=== PATIENT | female | born 1945 | race Hispanic/Latino ===

== ENCOUNTER 2017-11-05 02:13 | Inpatient (IN) | payer MEDICARE ==
[2017-11-05 02:14] VITALS: BMI 33.7
--- NOTE | 2017-11-05 02:35 | C.PDOC ---
History Of Present Illness The patient presents to the ED as a transfer from [facility]. Patient was evaluated at [facility] for bleeding from her left AV shunt. Patient had stitches placed to the area. She was sent to the ED because she apparently needs a revision for her shunt. Patient states she was due for dialysis yesterday. She denies chest pain and palpitations. Time Seen by Provider: 11/05/17 02:35 History Per: Patient History/Exam Limitations: no limitations Onset/Duration Of Symptoms: Hrs Current Symptoms Are (Timing): Still Present Severity: None Pain Scale Rating Of: 0 Recent travel outside of the [place]: No Additional History Per: Patient Past Medical History Reviewed: Historical Data, Nursing Documentation, Vital Signs Vital Signs: Last Vital Signs Temp 97.2 F L 11/05/17 02:37 Pulse 74 11/05/17 02:37 Resp 16 11/05/17 02:37 BP 112/73 11/05/17 02:37 Pulse Ox 97 11/05/17 03:36 - Medical History PMH: Anemia, Arthritis, Atrial Fibrillation, CAD, CHF, Diabetes, HTN, Hypercholesterolemia, Chronic Kidney Disease Surgical History: Coronary Stent, (1) - [facility] Procedures INTRODUCTION OF SERUM/TOX/VACCINE INTO MUSCLE, PERC APPROACH (07/12/15) Family History: States: Unknown Family Hx - Social History Hx Alcohol Use: No Hx Substance Use: No Review Of Systems Constitutional: Negative for: Fever, Chills Cardiovascular: Negative for: Chest Pain, Palpitations Respiratory: Negative for: Cough, Shortness of Breath Gastrointestinal: Negative for: Nausea, Vomiting Skin: Negative for: Rash, Lesions, Jaundice, Bruising Neurological: Negative for: Weakness, Numbness Physical Exam - Physical Exam Appears: Non-toxic, No Acute Distress Skin: Warm, Dry Head: Normacephalic Eye(s): bilateral: Normal Inspection Oral Mucosa: Moist Neck: Supple Chest: Symmetrical, No Deformity, No Tenderness Cardiovascular: Rhythm Regular, No Murmur Respiratory: No Rales, No Rhonchi, No Wheezing Extremity: Normal ROM, Capillary Refill (less than 2 seconds ), Other (left AV graft wrapped ) Neurological/Psych: Oriented x3 ED Course And Treatment O2 Sat by Pulse Oximetry: 97 (on RA) Pulse Ox Interpretation: Normal Disposition Discussed With : Keith Casanova Comment: accepted the pt onhis service and took over the care at 4:AM Doctor Will See Patient In The: Hospital Counseled Patient/Family Regarding: Studies Performed, Diagnosis - Disposition Disposition: HOSPITALIZED Disposition Time: 02:35 Condition: FAIR - Clinical Impression Clinical Impression: ESRD needing dialysis, Bleeding from dialysis shunt - Scribe Statement The provider has reviewed the documentation as recorded by the Scribe (Vonnie Casanova) Provider Attestation: All medical record entries made by the Scribe were at my direction and personally dictated by me. I have reviewed the chart and agree that the record accurately reflects my personal performance of the history, physical exam, medical decision making, and the department course for this patient. I have also personally directed, reviewed, and agree with the discharge instructions and disposition. Decision To Admit - Pt Status Changed To: Hospital Disposition Of: Inpatient - Admit Certification Admit to Inpatient:: After my assessment, the patient will require hospitalization for at least two midnights. This is because of the severity of symptoms shown, intensity of services needed, and/or the medical risk in this patient being treated as an outpatient. - InPatient: Physician Admission Certification: I certify that this patient requires 2 or more midnights of care for the following reason:: After my assessment, the patient will require hospitalization for at least two midnights. This is because of the severity of symptoms shown, intensity of services needed, and/or the medical risk in this patient being treated as an outpatient. - . Bed Request Type: Regular Admitting Physician: Keith Casanova Patient Diagnosis: ESRD needing dialysis, Bleeding from dialysis shunt
[2017-11-05] MEDS: [UNRECOGNIZED DRUG - OTHER] IV ONE ×3 (03:32→05:17)
[2017-11-05] MEDS: DEXTROSE IV ONE ×3 (03:32→05:17)
[2017-11-05] MEDS ORDERED: Dextrose 50% SYRINGE Inj (50 ml) IV STA (04:15)
[2017-11-05] MEDS ORDERED: DEXTROSE IV ONE (04:30)
[2017-11-05] MEDS ORDERED: [UNRECOGNIZED DRUG - OTHER] IV ONE (04:30)
--- NOTE | 2017-11-05 05:24 | CP.PCM.CON ---
History of Present Illness - History of Present Illness History of Present Illness: Vascular Surgery Consult Note for Dr. Martinez This is a 72F with a PMH of ESRD, HTN, Afib, and Aortic Stenosis and renal CA for which she finished chemo in april. She recently has had problems with her dialysis and on thursday she had a thrombctomy of her AVF she was told that they stitches shouwld be removed thursday at dialysis, when they removed the stitched she strated bleeding. She went to the [facility] where the surgical corsetier placed two nylon sutures to control the bleeding and the patient was transferred to [facility]. PMH: ESRD, HTN, Renal CA, PSH: Nephrectomy ALL: NKDA Review of Systems - Review of Systems All systems: reviewed and no additional remarkable complaints except Past Patient History - Past Medical History & Family History Past Medical History?: Yes - Past Social History Smoking Status: Never Smoked - CARDIAC Hx Atrial Fibrillation: Yes Hx Congestive Heart Failure: Yes Hx Hypercholesterolemia: Yes Hx Hypertension: Yes - PULMONARY Hx Respiratory Disorders: No - NEUROLOGICAL Hx Neurological Disorder: No - HEENT Hx HEENT Problems: No - RENAL Hx Chronic Kidney Disease: Yes - ENDOCRINE/METABOLIC Hx Endocrine Disorders: Yes Hx Diabetes Mellitus Type 2: Yes - HEMATOLOGICAL/ONCOLOGICAL Hx Anemia: Yes - INTEGUMENTARY Hx Dermatological Problems: No - MUSCULOSKELETAL/RHEUMATOLOGICAL Hx Arthritis: Yes - GASTROINTESTINAL Hx Gastrointestinal Disorders: No - GENITOURINARY/GYNECOLOGICAL Hx Genitourinary Disorders: Yes 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) - PSYCHIATRIC Hx Substance Use: No - SURGICAL HISTORY Hx Coronary Stent: Yes - ANESTHESIA Hx Anesthesia: Yes Hx Anesthesia Reactions: No Hx Malignant Hyperthermia: No Meds Allergies/Adverse Reactions: Allergies Allergy/AdvReac Type Severity Reaction Status Date / Time No Known Allergies Allergy Verified 11/05/17 02:46 Physical Exam - Constitutional Appears: Non-toxic, No Acute Distress - Head Exam Head Exam: ATRAUMATIC, NORMOCEPHALIC - Eye Exam Eye Exam: EOMI - ENT Exam ENT Exam: Mucous Membranes Moist - Respiratory Exam Respiratory Exam: NORMAL BREATHING PATTERN - Cardiovascular Exam Cardiovascular Exam: +S1, +S2 - GI/Abdominal Exam GI & Abdominal Exam: Soft. absent: Distended, Firm, Guarding, Hernia, Rigid, Tenderness - Extremities Exam Additional comments: LUE bandaged, Peripheral pulses intact distal had warm without sensory or motor changes - Neurological Exam Neurological exam: Alert, Oriented x3 - Psychiatric Exam Psychiatric exam: Normal Affect, Normal Mood - Skin Skin Exam: Dry, Intact Results - Vital Signs Recent Vital Signs: Last Vital Signs Temp 97.2 F L 11/05/17 02:37 Pulse 64 11/05/17 05:06 Resp 16 11/05/17 05:06 BP 86/36 L 11/05/17 05:06 Pulse Ox 97 11/05/17 05:06 - Labs Labs: Laboratory Results - last 24 hr 11/05/17 11/05/17 11/05/17 04:03 04:29 05:03 POC Glucose (mg/dL) 38 L* 151 H 170 H Assessment & Plan - Assessment and Plan (Free Text) Assessment: 72F with bleeding AVF NPO Likely OR today with Dr. Martinez for establishment of dialysis access D/W Dr. Michelle Perez PGY2
--- NOTE | 2017-11-05 09:27 | CP.PCM.PN ---
Subjective - Date & Time of Evaluation Date of Evaluation: 11/05/17 Time of Evaluation: 09:27 - Subjective Subjective: left arm fistula patent may be used for HD remove sutures where they were placed after a week Objective - Vital Signs/Intake and Output Vital Signs (last 24 hours): Temp Pulse Resp BP Pulse Ox 95.5 F L 60 16 101/49 L 99 11/05/17 05:50 11/05/17 06:41 11/05/17 06:41 11/05/17 06:41 11/05/17 06:41 Intake and Output: 11/05/17 11/05/17 06:59 18:59 Intake Total 30 Output Total 0 Balance 30
--- NOTE | 2017-11-05 14:01 | CP.PCM.CON ---
History of Present Illness - History of Present Illness History of Present Illness: Initial Nephrology Consultation: Assessment: Stable AVF bleeding/dysfunction Hypertensive Chronic Kidney Disease (I12.0) End stage renal disease (N18.6) dependence on hemodialysis (Z99.2) (MWF) via AVF Anemia (D64.9), Hyperphosphatemia (E83.39), Secondary Hyperparathyroidism (E21.1 ), HTN (I12.0) Obesity, RCC, hx of nephrectomy Plan: Will plan for HD today as ordered. Continue with Nephrovite 1 tab/day. next HD tomorrow as per MWF PRBC as needed for anemia. not On GRAEME as last Hb 11.7 Continue with phos binders home dose, check phos level BP control with meds as ordered. Glycemic control, Dialysis consistent diet Further work up/management as per primary team Dose meds/antibiotics (if needed) for ESRD status. Avoid fleets enema/magnesium based laxatives. appreciate vascular surgery input if able to use AVF without difficulty, pt may be considered for d/c home today after HD Thanks for allowing me to participate in care of your patient. will follow with you. Please call if any Qs Dr Say Salvador Office: [phone] Chief Complaint;access bleeding HPI: Pt is a 72 Fwith hx of ESRD on hemodialysis (MWF) via AVF (Dr Wing) @ [facility], last dialysis Mon, chronic anemia, hyperphosphatemia, secondary hyperparathyroidism, hypertension, obesity, RCC s/p nephrectomy presented with complaints of access bleeding after suture removal to [facility]. she has AVF intervention done at access center recently. transferred to [facility] for further care. renal consult for ESRD management ROS: Cardiovascular: No chest pain. Pulmonary: denies shortness of breath Gastrointestinal: denies abdominal pain no nausea. No vomiting. Genitourinary: No pain while urinating. Denies blood in urine. All other negative Physical Examination: General Appearance: in no acute respiratory distress, co-operative . comfortable Vitals reviewed and noted as below Head; Atraumatic, normocephalic ENT: no ulcers no thrush. Tongue is midline. Oropharynx: no rash or ulcers. EYES: Pupils are equal, round and reactive to light accommodation. Eye muscles and extraocular movement intact. Sclera is anicteric. Neck; supple no lymphadenopathy, no thyromegaly or bruit Lungs: Normal respiratory rate/effort. Breath sounds bilateral equal and clear Heart: Normal rate. s1s2 normal. No rub or gallop. Extremities: no edema. No varicose veins Neurological: Patient is alert, awake and oriented to person, place and time. No focal deficit. Strength bilateral appropriate and equal Skin: Warm and dry. Normal turgor. No rash. Palpitation: Normal elasticity for age Abdomen: Abdomen is soft. Bowel sounds +. There is no abdominal tenderness, no guarding/rigidity or organomegaly Psych: normal insight and normal affect/mood MSK: no joint tenderness or swelling. Digits and nails normal, no deformity : kidney or bladder not palpable Access: AVF lUE with thrill abd bruit. Labs/imaging reviewed. Past medical history, past surgical history, family history, social history, allergy reviewed and noted as below Family Hx: no hx of CKD. Non contributory Past Patient History - Past Medical History & Family History Past Medical History?: Yes - Past Social History Smoking Status: Never Smoked - CARDIAC Hx Atrial Fibrillation: Yes Hx Congestive Heart Failure: Yes Hx Hypercholesterolemia: Yes Hx Hypertension: Yes - PULMONARY Hx Respiratory Disorders: No - NEUROLOGICAL Hx Neurological Disorder: No - HEENT Hx HEENT Problems: No - RENAL Date of Last Dialysis Treatment: 11/02/17 - ENDOCRINE/METABOLIC Hx Endocrine Disorders: Yes Hx Diabetes Mellitus Type 2: Yes - HEMATOLOGICAL/ONCOLOGICAL Hx Anemia: Yes - INTEGUMENTARY Hx Dermatological Problems: No - MUSCULOSKELETAL/RHEUMATOLOGICAL Hx Falls: No - GASTROINTESTINAL Hx Gastrointestinal Disorders: No - GENITOURINARY/GYNECOLOGICAL Hx Genitourinary Disorders: Yes 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) - PSYCHIATRIC Hx Substance Use: No - SURGICAL HISTORY Hx Coronary Stent: Yes - ANESTHESIA Hx Anesthesia: Yes Hx Anesthesia Reactions: No Hx Malignant Hyperthermia: No Meds Allergies/Adverse Reactions: Allergies Allergy/AdvReac Type Severity Reaction Status Date / Time No Known Allergies Allergy Verified 11/05/17 02:46 Results - Vital Signs Recent Vital Signs: Last Vital Signs Temp 97.5 F L 11/05/17 10:17 Pulse 68 11/05/17 08:57 Resp 16 11/05/17 06:41 BP 101/49 L 11/05/17 06:41 Pulse Ox 99 11/05/17 06:41 - Labs Labs: Laboratory Results - last 24 hr 11/05/17 11/05/17 11/05/17 04:03 04:29 05:03 POC Glucose (mg/dL) 38 L* 151 H 170 H 11/05/17 11/05/17 11/05/17 05:38 10:19 11:23 POC Glucose (mg/dL) 154 H 95 81
--- NOTE | 2017-11-05 16:04 | CP.PCM.HP ---
Past Patient History - Past Medical History & Family History Past Medical History?: Yes - Past Social History Smoking Status: Never Smoked - CARDIAC Hx Atrial Fibrillation: Yes Hx Congestive Heart Failure: Yes Hx Hypercholesterolemia: Yes Hx Hypertension: Yes - PULMONARY Hx Respiratory Disorders: No - NEUROLOGICAL Hx Neurological Disorder: No - HEENT Hx HEENT Problems: No - RENAL Date of Last Dialysis Treatment: 11/02/17 - ENDOCRINE/METABOLIC Hx Endocrine Disorders: Yes Hx Diabetes Mellitus Type 2: Yes - HEMATOLOGICAL/ONCOLOGICAL Hx Anemia: Yes - INTEGUMENTARY Hx Dermatological Problems: No - MUSCULOSKELETAL/RHEUMATOLOGICAL Hx Falls: No - GASTROINTESTINAL Hx Gastrointestinal Disorders: No - GENITOURINARY/GYNECOLOGICAL Hx Genitourinary Disorders: Yes 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) - PSYCHIATRIC Hx Substance Use: No - SURGICAL HISTORY Hx Coronary Stent: Yes - ANESTHESIA Hx Anesthesia: Yes Hx Anesthesia Reactions: No Hx Malignant Hyperthermia: No Meds Allergies/Adverse Reactions: Allergies Allergy/AdvReac Type Severity Reaction Status Date / Time No Known Allergies Allergy Verified 11/05/17 02:46 Physical Exam - Constitutional Appears: Well - Head Exam Head Exam: ATRAUMATIC, NORMAL INSPECTION, NORMOCEPHALIC - Eye Exam Eye Exam: EOMI, Normal appearance, PERRL Pupil Exam: NORMAL ACCOMODATION, PERRL - ENT Exam ENT Exam: Mucous Membranes Moist, Normal Exam - Neck Exam Neck exam: Positive for: Normal Inspection - Respiratory Exam Respiratory Exam: Decreased Breath Sounds - Cardiovascular Exam Cardiovascular Exam: REGULAR RHYTHM, +S1, +S2 - GI/Abdominal Exam GI & Abdominal Exam: Diminished Bowel Sounds, Soft - Rectal Exam Rectal Exam: Deferred Results - Vital Signs Recent Vital Signs: Last Vital Signs Temp 97.5 F L 11/05/17 10:17 Pulse 68 11/05/17 08:57 Resp 16 11/05/17 06:41 BP 101/49 L 11/05/17 06:41 Pulse Ox 99 11/05/17 06:41 - Labs Labs: Laboratory Results - last 24 hr 11/05/17 11/05/17 11/05/17 04:03 04:29 05:03 POC Glucose (mg/dL) 38 L* 151 H 170 H 11/05/17 11/05/17 11/05/17 05:38 10:19 11:23 POC Glucose (mg/dL) 154 H 95 81
[2017-11-05 16:07] VITALS: O2SAT 100
[2017-11-05 18:27] VITALS: RESP 14
[2017-11-05 18:28] VITALS: BP 124/54; PULSE 85
[2017-11-06] MEDS ORDERED: Multivitamin Vitamin B Complex (Nephro-Vite) Tab PO SCH (10:00)
--- NOTE | 2017-11-06 11:29 | CP.PCM.PN ---
Subjective - Date & Time of Evaluation Date of Evaluation: 11/06/17 Time of Evaluation: 11:28 - Subjective Subjective: PATIENT WAS ADMITTED FOR BLEEDING SHUNT SITTING AT THE BEDSIDE ON ROOM AIR / AAOX3 NO SIGN OF DISTRESS NOTED Objective - Vital Signs/Intake and Output Vital Signs (last 24 hours): Temp Pulse Resp BP Pulse Ox 98 F 85 14 124/54 L 100 11/05/17 15:00 11/05/17 18:00 11/05/17 18:00 11/05/17 18:00 11/05/17 18:00 Intake and Output: 11/06/17 11/06/17 06:59 18:59 Intake Total 240 Output Total 0 Balance 240 - Medications Medications: Current Medications Amiodarone HCl (Cordarone) 200 mg PO DAILY [facility] Last Admin: 11/06/17 10:24 Dose: 200 mg Apixaban (Eliquis) 2.5 mg PO Q12 [facility] Last Admin: 11/06/17 10:24 Dose: 2.5 mg Metoprolol Succinate (Toprol Xl) 25 mg PO SuTuThSa [facility] Sevelamer Carbonate (Renvela) 800 mg PO TIDCC [facility] Last Admin: 11/06/17 10:26 Dose: 800 mg Vitamin B Complex/Vit C/Folic Acid (Nephro-Delisa) 1 tab PO DAILY [facility] Assessment and Plan - Assessment and Plan (Free Text) Assessment: PATIENT SEEN AND EXAMINED AT THE BEDSIDE LUNG SOUND CLEAR ABD SOFT DISTENDED LEG EDEMA +1 LEFT ARM AVS BRUIT / NO SIGN OF BLEEDING NOTED DISCUSS WITH DR Froylan BALDWIN WHO CLEAR PATIENT FOR DC FOLLOW UP WITH DR Froylan BALDWIN IN HIS OFFICE IN 1-2 WEEK ---CALL FOR APPOINTMENT FOLLOW UP WITH DR BISHOP IN HIS OFFICE IN 1 WEEK ---CALL FOR APPOINTMENT CONTINUE ALL YOUR HOME MEDICATION HEMODIALYSIS SCHEDULE ACTIVITY TOLERATED CALL DR BALDWIN OR GO TO THE EMERGENCY ROOM IF SYMPTOMS RETURN OR WORSENING DISCUSS WITH PATIENT WHO AGREE AND VERBALIZED UNDERSTANDING
[2017-11-06 12:22] VITALS: TEMP 98.7
--- NOTE | 2017-11-06 12:55 | CARD ---
APPROVED REPORT EKG Measurement Heart [id number] <Conclusion> Atrial fibrillation Left axis deviation Right bundle branch block Abnormal ECG
--- NOTE | 2017-11-06 15:39 | CP.PCM.PN ---
Subjective - Date & Time of Evaluation Date of Evaluation: 11/06/17 Time of Evaluation: 15:38 - Subjective Subjective: Nephrology Consultation: Assessment: Stable AVF bleeding/dysfunction Hypertensive Chronic Kidney Disease (I12.0) End stage renal disease (N18.6) dependence on hemodialysis (Z99.2) (MWF) via AVF Anemia (D64.9), Hyperphosphatemia (E83.39), Secondary Hyperparathyroidism (E21.1 ), HTN (I12.0) Obesity, RCC, hx of nephrectomy Plan: Will plan for HD today as ordered however pt being d/c home today and pt arranged to go to oupt HD tomorrow. Continue with Nephrovite 1 tab/day. PRBC as needed for anemia. not On GRAEME as last Hb 11.7 Continue with phos binders home dose, check phos level BP control with meds as ordered. Glycemic control, Dialysis consistent diet Further work up/management as per primary team Dose meds/antibiotics (if needed) for ESRD status. Avoid fleets enema/magnesium based laxatives. appreciate vascular surgery input as able to use AVF without difficulty, pt stable for d/c from renal perspective Thanks for allowing me to participate in care of your patient. will follow with you. Please call if any Qs Dr Say Salvador Office: [phone] Chief Complaint;access bleeding HPI: Pt is a 72 Fwith hx of ESRD on hemodialysis (MWF) via AVF (Dr Wing) @ [facility], last dialysis Mon, chronic anemia, hyperphosphatemia, secondary hyperparathyroidism, hypertension, obesity, RCC s/p nephrectomy presented with complaints of access bleeding after suture removal to [facility]. she has AVF intervention done at access center recently. transferred to [facility] for further care. renal consult for ESRD management ROS: Cardiovascular: No chest pain. Pulmonary: denies shortness of breath Gastrointestinal: denies abdominal pain no nausea. No vomiting. Genitourinary: No pain while urinating. Denies blood in urine. All other negative Physical Examination: General Appearance: in no acute respiratory distress, co-operative . comfortable Vitals reviewed and noted as below Head; Atraumatic, normocephalic ENT: no ulcers no thrush. Tongue is midline. Oropharynx: no rash or ulcers. EYES: Pupils are equal, round and reactive to light accommodation. Eye muscles and extraocular movement intact. Sclera is anicteric. Neck; supple no lymphadenopathy, no thyromegaly or bruit Lungs: Normal respiratory rate/effort. Breath sounds bilateral equal and clear Heart: Normal rate. s1s2 normal. No rub or gallop. Extremities: no edema. No varicose veins Neurological: Patient is alert, awake and oriented to person, place and time. No focal deficit. Strength bilateral appropriate and equal Skin: Warm and dry. Normal turgor. No rash. Palpitation: Normal elasticity for age Abdomen: Abdomen is soft. Bowel sounds +. There is no abdominal tenderness, no guarding/rigidity or organomegaly Psych: normal insight and normal affect/mood MSK: no joint tenderness or swelling. Digits and nails normal, no deformity : kidney or bladder not palpable Access: AVF lUE with thrill abd bruit. Labs/imaging reviewed. Past medical history, past surgical history, family history, social history, allergy reviewed and noted as below Family Hx: no hx of CKD. Non contributory Objective - Vital Signs/Intake and Output Vital Signs (last 24 hours): Temp Pulse Resp BP Pulse Ox 98.7 F 85 14 124/54 L 100 11/06/17 10:17 11/05/17 18:00 11/05/17 18:00 11/05/17 18:00 11/06/17 10:17 Intake and Output: 11/06/17 11/06/17 06:59 18:59 Intake Total 240 Output Total 0 Balance 240 - Medications Medications: Current Medications Amiodarone HCl (Cordarone) 200 mg PO DAILY [facility] Last Admin: 11/06/17 10:24 Dose: 200 mg Apixaban (Eliquis) 2.5 mg PO Q12 [facility] Last Admin: 11/06/17 10:24 Dose: 2.5 mg Metoprolol Succinate (Toprol Xl) 25 mg PO SuTuThSa [facility] Sevelamer Carbonate (Renvela) 800 mg PO TIDCC [facility] Last Admin: 11/06/17 10:26 Dose: 800 mg Vitamin B Complex/Vit C/Folic Acid (Nephro-Delisa) 1 tab PO DAILY [facility]
[2017-11-07] MEDS ORDERED: Metoprolol Succinate 25 mg XL Tab PO SCH (09:35)
== END 2017-11-06 15:30 | disposition home or self-care (01) | DRG 314 ==
LOC: C.ER 02:13 → C.3T 03:00 → C.9E 06:13 → C.9I 06:22
PROVIDERS: ADMIT Internal Medicine Nephrology; ATTEND Internal Medicine Nephrology
PROC: 5A1D70Z Performance of Urinary Filtration, Intermittent, Less than 6 Hours Per Day (ICD-10-PCS; principal; 2017-11-05)
DX: T82.838A Hemorrhage due to vascular prosthetic devices, implants and grafts, initial encounter (principal); N18.6 End stage renal disease; N25.81 Secondary hyperparathyroidism of renal origin; I13.2 Hypertensive heart and chronic kidney disease with heart failure and with stage 5 chronic kidney disease, or end stage renal disease; I48.91 Unspecified atrial fibrillation; I35.0 Nonrheumatic aortic (valve) stenosis; E11.22 Type 2 diabetes mellitus with diabetic chronic kidney disease; E83.39 Other disorders of phosphorus metabolism; I25.10 Atherosclerotic heart disease of native coronary artery without angina pectoris; E21.1 Secondary hyperparathyroidism, not elsewhere classified; D64.9 Anemia, unspecified; E78.00 Pure hypercholesterolemia, unspecified; E66.9 Obesity, unspecified; Z95.5 Presence of coronary angioplasty implant and graft; Z99.2 Dependence on renal dialysis; Z90.5 Acquired absence of kidney; Z85.528 Personal history of other malignant neoplasm of kidney; Z85.54 Personal history of malignant neoplasm of ureter; Z92.21 Personal history of antineoplastic chemotherapy; M19.90 Unspecified osteoarthritis, unspecified site

== ENCOUNTER 2018-06-28 18:37 | Inpatient (IN) | payer MEDICARE ==
[2018-06-28 19:08] VITALS: BMI 34.0
--- NOTE | 2018-06-28 19:53 | C.PDOC ---
History Of Present Illness 72 year old female with a history of ESRD currently on dialysis presents to the emergency department with complaints of left AV fistula with clog. Patient states that she missed her dialysis today, with her last dialysis being on Thu06/25/18. Patient has a secondary complaint of coccyx pain status-post falling over [place]. Patient has a history of frequent falls. She denies head injury and LOC. Time Seen by Provider: 06/28/18 19:50 Chief Complaint (Nursing): Medical Clearance History Per: Patient History/Exam Limitations: no limitations Onset/Duration Of Symptoms: Hrs Current Symptoms Are (Timing): Still Present Past Medical History Reviewed: Historical Data, Nursing Documentation, Vital Signs Vital Signs: Last Vital Signs Temp 97.2 F L 06/28/18 19:05 Pulse 79 06/28/18 19:05 Resp 18 06/28/18 19:05 BP 115/74 06/28/18 19:05 Pulse Ox 99 06/28/18 19:05 - Medical History PMH: Anemia, Arthritis, Atrial Fibrillation, CAD, CHF, Diabetes, HTN, Hypercholesterolemia, Parkinson's Disease, End Stage Renal Disease, Chronic Kidney Disease Surgical History: Coronary Stent, (1) - [facility] Procedures (11/05/17) INTRODUCTION OF SERUM/TOX/VACCINE INTO MUSCLE, PERC APPROACH (07/12/15) Family History: States: No Known Family Hx - Social History Hx Alcohol Use: No Hx Substance Use: No - Immunization History Hx Tetanus Toxoid Vaccination: No Hx Influenza Vaccination: Yes Hx Pneumococcal Vaccination: Yes Review Of Systems Except As Marked, All Systems Reviewed And Found Negative. Constitutional: Negative for: Fever, Chills Gastrointestinal: Negative for: Nausea, Vomiting, Diarrhea Skin: Positive for: Other (left AV fistula) Physical Exam - Physical Exam Appears: Non-toxic, No Acute Distress Skin: Warm, Dry, Ecchymosis (present to the right elbow) Head: Atraumatic, Normacephalic Eye(s): bilateral: Normal Inspection, PERRL, EOMI Neck: Normal, Supple Chest: Symmetrical, No Tenderness Cardiovascular: Rhythm Regular, No Murmur Respiratory: Normal Breath Sounds, No Rales, No Rhonchi, No Wheezing Gastrointestinal/Abdominal: Soft, No Tenderness Extremity: Tenderness (coccyx tenderness), Other (right elbow NON-tender) Neurological/Psych: Oriented x3, Normal Speech, Normal Cognition ED Course And Treatment - Laboratory Results Result Diagrams: 06/30/18 05:20 06/30/18 05:20 O2 Sat by Pulse Oximetry: 99 (RA) Pulse Ox Interpretation: Normal Medical Decision Making Medical Decision Making: Plan: EKG Chemistry Bloodwork CXR XR Sacrum noted ekg changes, and k. calcium insulin dextrose dosed. call placed to dr ortega witt. will arrange hd after shiley placed by icu. accepted by dr roberts. Dr. Ortega witt states shiley to be placed, then control inspector nurse can be called Disposition - Disposition Disposition: HOSPITALIZED Disposition Time: 00:01 Condition: CRITICAL - Clinical Impression Clinical Impression: ESRD (end stage renal disease), Hyperkalemia, Fractured coccyx - Scribe Statement The provider has reviewed the documentation as recorded by the Scribe (Riley Coffey) Provider Attestation: All medical record entries made by the Scribe were at my direction and perso liberty dictated by me. I have reviewed the chart and agree that the record accurately reflects my personal performance of the history, physical exam, medical decision making, and the department course for this patient. I have also personally directed, reviewed, and agree with the discharge instructions and disposition. Decision To Admit - Pt Status Changed To: Hospital Disposition Of: Inpatient - Admit Certification Admit to Inpatient:: After my assessment, the patient will require hospitalization for at least two midnights. This is because of the severity of symptoms shown, intensity of services needed, and/or the medical risk in this patient being treated as an outpatient. - InPatient: Physician Admission Certification: I certify that this patient requires 2 or more midnights of care for the following reason:: needs emergent hd - . Bed Request Type: ICU Admitting Physician: Reyes Roberts Patient Diagnosis: ESRD (end stage renal disease), Hyperkalemia, Fractured coccyx
[2018-06-28 21:27] LABS: BASO % 0.5 % (0.0-2.0); EOS % 0.1 % (0.0-4.0); HEMOGLOBIN 12.2 g/dL (11.0-16.0); LYMPH # 0.6 K/uL (1.0-4.3); MEAN CELL VOLUME 97.1 fL (81.0-99.0); MEAN CORPUSCULAR HEMOGLOBIN 31.9 pg (27.0-31.0); MEAN CORPUSCULAR HGB CONC 32.9 g/dL (33.0-37.0); MEAN PLATELET VOLUME 8.3 fL (7.2-11.7); MONO # 0.3 K/uL (0.0-0.8); NEUT # 5.4 K/uL (1.8-7.0); NEUT % 86.4 % (50.0-75.0); PLATELET COUNT 147 K/uL (130-400); RBC 3.84 Mil/uL (3.80-5.20); RED CELL DISTRIBUTION WIDTH 14.6 % (11.5-14.5); WHITE BLOOD COUNT 6.2 K/uL (4.8-10.8)
[2018-06-28 21:52] LABS: LYMPHOCYTE 9 % (20-40); MONOCYTE 5 % (0-10); NEUTROPHIL 86 % (50-75); PLATELET ESTIMATE NORMAL (NORMAL); TOTAL CELLS COUNTED 100
--- NOTE | 2018-06-28 22:09 | CP.PCM.CON ---
History of Present Illness - History of Present Illness History of Present Illness: Vascular Surgery: Dr. Martinez Pt is a 72F with PMHx significant for ESRD on HD (MWF),HTN,Afib,aortic stenosis,DM,HLD,Left kidney CA s/p nephrectomy 2014 & Parkinson's who presents to with malfunctioning L AVF. As per the pt and her son at bedside, she has had problems with her AVF from time to time since placement 3 yrs ago at [facility]. However, she states that most of the time, the "clot" is removed and they are able to access her AVF for HD. She states this morning however, the AVF could not be accessed and therefore she was unable to get dialysis. She admits to pain in her back due to recent fall but otherwise denies complaints. Denies nausea/vomiting, fevers/chills, headaches/dizziness, chest pain or SOB. PMHx: as listed above PSHx: L arm AVF, L nephrectomy, angioplasty/coronary stents, I&D of breast and extremity abscesses SocialHx: denies smoking/EtOH/drugs NKDA Review of Systems - Review of Systems All systems: reviewed and no additional remarkable complaints except (as per HPI) Past Patient History - Past Medical History & Family History Past Medical History?: Yes - Past Social History Smoking Status: Never Smoked - CARDIAC Hx Atrial Fibrillation: Yes Hx Congestive Heart Failure: Yes Hx Hypercholesterolemia: Yes Hx Hypertension: Yes - PULMONARY Hx Respiratory Disorders: No - NEUROLOGICAL Hx Parkinson's Disease: Yes - HEENT Hx HEENT Problems: No - RENAL Hx Chronic Kidney Disease: Yes - ENDOCRINE/METABOLIC Hx Endocrine Disorders: Yes Hx Diabetes Mellitus Type 2: Yes - HEMATOLOGICAL/ONCOLOGICAL Hx Anemia: Yes - INTEGUMENTARY Hx Dermatological Problems: No - MUSCULOSKELETAL/RHEUMATOLOGICAL Hx Arthritis: Yes - GASTROINTESTINAL Hx Gastrointestinal Disorders: No - GENITOURINARY/GYNECOLOGICAL Hx Genitourinary Disorders: Yes 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) - PSYCHIATRIC Hx Substance Use: No - SURGICAL HISTORY Hx Coronary Stent: Yes - ANESTHESIA Hx Anesthesia: Yes Hx Anesthesia Reactions: No Hx Malignant Hyperthermia: No Meds Allergies/Adverse Reactions: Allergies Allergy/AdvReac Type Severity Reaction Status Date / Time No Known Allergies Allergy Verified 06/28/18 19:04 Physical Exam - Constitutional Appears: Well, No Acute Distress - Head Exam Head Exam: ATRAUMATIC, NORMOCEPHALIC - Eye Exam Eye Exam: Normal appearance - ENT Exam ENT Exam: Mucous Membranes Moist - Respiratory Exam Respiratory Exam: NORMAL BREATHING PATTERN - Cardiovascular Exam Cardiovascular Exam: RRR - GI/Abdominal Exam GI & Abdominal Exam: Soft. absent: Guarding, Tenderness - Extremities Exam Additional comments: L arm AVF with palpable thrill - Neurological Exam Neurological exam: Alert, Oriented x3 - Skin Skin Exam: Dry, Warm Results - Vital Signs Recent Vital Signs: Last Vital Signs Temp 97.2 F L 06/28/18 19:05 Pulse 79 06/28/18 19:05 Resp 18 06/28/18 19:05 BP 115/74 06/28/18 19:05 Pulse Ox 99 06/28/18 20:06 - Labs Result Diagrams: 06/28/18 21:24 Labs: Laboratory Results - last 24 hr 06/28/18 21:24 WBC 6.2 RBC 3.84 Hgb 12.2 Hct 37.3 MCV 97.1 MCH 31.9 H MCHC 32.9 L RDW 14.6 H Plt Count 147 MPV 8.3 Neut % (Auto) 86.4 H Lymph % (Auto) 9.0 L [place] % (Auto) 4.0 Eos % (Auto) 0.1 Baso % (Auto) 0.5 Neut # (Auto) 5.4 Lymph # (Auto) 0.6 L [place] # (Auto) 0.3 Eos # (Auto) 0.0 Baso # (Auto) 0.0 Neutrophils % (Manual) 86 H Lymphocytes % (Manual) 9 L Monocytes % (Manual) 5 Platelet Estimate Normal Assessment & Plan - Assessment and Plan (Free Text) Assessment: 72F with malfunctioning AVF Plan: - Keep NPO after midnight - plan for OR in AM for fistulagram & possible permacath - d/w Dr. Michelle Arvizu
[2018-06-28 23:07] LABS: INR 1.1; PROTHROMBIN TIME 12.5 SECONDS (9.7-12.2)
[2018-06-28 23:21] LABS: TROPONIN I 0.026 ng/mL (0.00-0.120)
[2018-06-28] MEDS ORDERED: Calcium Gluconate 4.65 mEq/10 ml Inj IVP ONE (23:30)
[2018-06-28 23:31] LABS: ALB/GLOB RATIO 1.7 (1.0-2.1); ALBUMIN 4.3 g/dL (3.5-5.0); CALCIUM 9.2 mg/dl (8.6-10.4)
[2018-06-28] MEDS ORDERED: Dextrose 50% SYRINGE Inj (50 ml) IV STA (23:31)
[2018-06-28] MEDS ORDERED: (Novolin R) Insulin Human Regular 100 units/ml vial IVP STA (23:31)
[2018-06-28] MEDS ORDERED: Calcium Gluconate 4.65 mEq/10 ml Inj ONE (23:41)
[2018-06-28] MEDS ORDERED: (Novolin R) Insulin Human Regular 100 units/ml vial ONE (23:43)
[2018-06-28] MEDS ORDERED: Dextrose 50% SYRINGE Inj (50 ml) ONE (23:44)
[2018-06-29] MEDS ORDERED: Sod Polystyrene Sulf 15 gm/60 ml Susp ONE (00:14)
--- NOTE | 2018-06-29 01:54 | PCM.PROC ---
Procedures Attestation:: I certify that I have explained the specified Operation(s) or Procedure(s), risks, benefits and reasonable alternatives to the Patient and/or other person responsible. The opportunity was given to ask questions and all questions answered - Central Line Placement Right Femoral Hemodialysis Access Aseptic technique was employed throughout the procedure: Hand Hygiene done prior to procedure, Full sterile barriers (mask, hair cover, sterile gown, sterile gloves), Full body sterile drape, Chloraprep Antiseptic: 2 minute prep for Femoral CVP Time Out Performed: Yes Pt. Placed on Pulse Ox Monitor: Yes Central Line Prep: Chlorhexidine-Alcohol Combination Local Anesthesia Used: Lidocaine 1% Amount of Anesthesia Used (mls): 20 Ultrasound Used for Placement: Yes Central Line Lumen Inserted: double Central Line Length: 20 cm Post Procedure: Sutured in Place, Good Blood Return, All Ports Aspirated, Flushed, Capped, Sterile Dressing Applied Secured by: Suture Post procedure dressing: Clear vapor permeable, Chlorhexidine disc (Biopatch) Post Procedure X-Ray: No Patient Tolerated Procedure: Well, No Complications Additional Comments: difficult placement with multiple kinks in guidewire secondary to difficult cannulization of dilator along with tortuous vessel anatomy. Good flow and blood return as long as catheter is maintained in a flattened position.
[2018-06-29] MEDS ORDERED: Albuterol 0.083% Inhal Sol (2.5 mg/3 mL) UD INH ONE (02:22)
--- NOTE | 2018-06-29 02:30 | CP.PCM.CON ---
History of Present Illness - History of Present Illness History of Present Illness: 72yo F. PMHX Anemia of chronic disease, Arthritis, Atrial Fibrillation, CAD with stent, CHF, Diabetes, HTN, Hypercholesterolemia, Parkinson's Disease, , I&D of breast and extremity abscesses, left nephrectomy secondary to Renal carcinoma, currently on chemotherapy, ESRD on HD M/W/. Had dialysis on Thursday, went to dialysis today, but could not perform secondary to clotted left AVF. presented to ED for urgent dialysis and dialysis catheter placement, with the complication of severe hyperkalemia with EKG changes and bradycardia. Review of Systems - Review of Systems All systems: reviewed and no additional remarkable complaints except - Musculoskeletal Musculoskeletal: Back Pain Past Patient History - Past Medical History & Family History Past Medical History?: Yes - Past Social History Smoking Status: Never Smoked - CARDIAC Hx Atrial Fibrillation: Yes Hx Congestive Heart Failure: Yes Hx Hypercholesterolemia: Yes Hx Hypertension: Yes - PULMONARY Hx Respiratory Disorders: No - NEUROLOGICAL Hx Parkinson's Disease: Yes - HEENT Hx HEENT Problems: No - RENAL Hx Chronic Kidney Disease: Yes Date of Last Dialysis Treatment: 06/25/18 - ENDOCRINE/METABOLIC Hx Endocrine Disorders: Yes Hx Diabetes Mellitus Type 2: Yes - HEMATOLOGICAL/ONCOLOGICAL Hx Anemia: Yes - INTEGUMENTARY Hx Dermatological Problems: No - MUSCULOSKELETAL/RHEUMATOLOGICAL Hx Arthritis: Yes Hx Falls: Yes - GASTROINTESTINAL Hx Gastrointestinal Disorders: No - GENITOURINARY/GYNECOLOGICAL Hx Genitourinary Disorders: Yes 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) - PSYCHIATRIC Hx Substance Use: No - SURGICAL HISTORY Hx Coronary Stent: Yes Hx Kidney Transplant: No (LEFT NEPHRECTOMY IN 2014) - ANESTHESIA Hx Anesthesia: Yes Hx Anesthesia Reactions: No Hx Malignant Hyperthermia: No Has any member of the family had a problem w/ anesthesia?: No Meds Allergies/Adverse Reactions: Allergies Allergy/AdvReac Type Severity Reaction Status Date / Time No Known Allergies Allergy Verified 06/28/18 19:04 Physical Exam - Constitutional Appears: Well - Head Exam Head Exam: ATRAUMATIC, NORMAL INSPECTION, NORMOCEPHALIC - Eye Exam Eye Exam: EOMI, Normal appearance, PERRL Pupil Exam: NORMAL ACCOMODATION, PERRL - ENT Exam ENT Exam: Mucous Membranes Moist, Normal Exam - Neck Exam Neck exam: Positive for: Normal Inspection - Respiratory Exam Respiratory Exam: Clear to Auscultation Bilateral, NORMAL BREATHING PATTERN - Cardiovascular Exam Cardiovascular Exam: Bradycardia - GI/Abdominal Exam GI & Abdominal Exam: Normal Bowel Sounds, Soft. absent: Tenderness Additional comments: abdominal surgery scars (nephrectomy, ) - Extremities Exam Extremities exam: Positive for: normal inspection, pedal edema - Neurological Exam Neurological exam: Alert, Oriented x3 - Psychiatric Exam Psychiatric exam: Anxious, Normal Affect Results - Vital Signs Recent Vital Signs: Last Vital Signs Temp 97.2 F L 06/28/18 19:05 Pulse 47 L 06/29/18 01:42 Resp 19 06/29/18 01:42 BP 75/28 L 06/29/18 01:42 Pulse Ox 91 L 06/29/18 01:42 - Labs Result Diagrams: 06/28/18 21:24 06/28/18 22:55 Labs: Laboratory Results - last 24 hr 06/28/18 06/28/18 06/28/18 21:24 22:55 22:55 WBC 6.2 RBC 3.84 Hgb 12.2 Hct 37.3 MCV 97.1 MCH 31.9 H MCHC 32.9 L RDW 14.6 H Plt Count 147 MPV 8.3 Neut % (Auto) 86.4 H Lymph % (Auto) 9.0 L [place] % (Auto) 4.0 Eos % (Auto) 0.1 Baso % (Auto) 0.5 Neut # (Auto) 5.4 Lymph # (Auto) 0.6 L [place] # (Auto) 0.3 Eos # (Auto) 0.0 Baso # (Auto) 0.0 Neutrophils % (Manual) 86 H Lymphocytes % (Manual) 9 L Monocytes % (Manual) 5 Platelet Estimate Normal PT 12.5 H INR 1.1 APTT 31 Sodium 134 Potassium 7.5 H* Chloride 95 L Carbon Dioxide 21 L Anion Gap 26 H BUN 146 H* Creatinine 11.0 H* Est GFR ( Amer) 4 Est GFR (Non-Af Amer) 3 Random Glucose 148 H Calcium 9.2 Total Bilirubin 0.6 AST 18 ALT 13 Alkaline Phosphatase 140 H D Troponin I 0.0260 Total Protein 6.8 Albumin 4.3 Globulin 2.5 Albumin/Globulin Ratio 1.7 Assessment & Plan (1) Hyperkalemia Assessment and Plan: 72yo F. PMHX Anemia of chronic disease, Arthritis, Atrial Fibrillation, CAD with stent, CHF, Diabetes, HTN, Hypercholesterolemia, Parkinson's Disease, , I&D of breast and extremity abscesses, left nephrectomy secondary to Renal carcinoma, currently on chemotherapy, ESRD on HD M/W/F. p/w clotted AV fistula/graft c/b severe hyperkalemia with EKG changes and bradycardia, requiring urgent dialysis. Neuro: alert and oriented x 3 Pulm: no acute issues, breathing spontaneously on room air. CV: hemodynamically stable. Asymptomatic bradycardia. Hem: anemia of chronic disease. Vasc: Vascular surgery consulted for eventual revascularization of AVF. Renal: ESRD on HD MWF, missed dialysis today secondary to clotted AVF. hyperkalemia with bradycardia. received insulin, D50, kayexalate and calcium gluconate in ED. Gave albuterol treatment in ICU, while awaiting dialysis initiation. Endo: DM type 2, SISS for coverage. GI: NPO ID: no acute issues. DVT proph - heparin sq GI proph - not currently indicated Code status - full code Critical Care Time spent 50 minutes The documented time is cumulative and includes review of patient data/exams/labs/chart review and examination of the patient on rounds and throughout the day; time is exclusive of any procedures or teaching time. Status: Acute
[2018-06-29] MEDS: (Novolin R) Insulin Human Regular 100 units/ml vial SC SCH ×4 (05:38→22:37)
[2018-06-29 06:23] LABS: HEMOGLOBIN 10.5 g/dL (11.0-16.0); MEAN CELL VOLUME 96.4 fL (81.0-99.0); MEAN CORPUSCULAR HEMOGLOBIN 31.6 pg (27.0-31.0); MEAN CORPUSCULAR HGB CONC 32.8 g/dL (33.0-37.0); MEAN PLATELET VOLUME 8.6 fL (7.2-11.7); RBC 3.33 Mil/uL (3.80-5.20); RED CELL DISTRIBUTION WIDTH 14.9 % (11.5-14.5); WHITE BLOOD COUNT 5.9 K/uL (4.8-10.8)
[2018-06-29 06:50] LABS: ALB/GLOB RATIO 1.7 (1.0-2.1); CALCIUM 8.9 mg/dl (8.6-10.4)
--- NOTE | 2018-06-29 08:11 | RAD ---
Date of service: 06/28/2018 PROCEDURE: Radiographs of the Sacrum and Coccyx HISTORY: fall COMPARISON: None available. TECHNIQUE: Frontal and lateral views of the sacrum and coccyx FINDINGS: BONES: Sacrum and coccyx unremarkable. No fracture or focal lesion. SACROILIAC JOINTS: Inferior moderate sclerotic arthrosis. OTHER FINDINGS: Mild-moderate pubic symphyseal sclerotic arthrosis. Bilateral axial hip joint space narrowing with diffuse bilateral acetabular spurring Anterior subluxation of L4 relative to L5. L4-5 and L5-S1 lumbar facet hypertrophic arthrosis. Subluxation compatible with degenerative ligamentous laxity. Atherosclerotic vascular calcifications present. Large pelvic body habitus. IMPRESSION: No sacral or coccygeal fracture appreciated. Other findings as above.
--- NOTE | 2018-06-29 10:56 | RAD ---
Chest x-ray single frontal view HISTORY: Chest pain. COMPARISON: None available. Findings: Diffuse increased interstitial lung markings. Patchy increased markings at the lung bases. Small left pleural effusion. Punctate nodular density in the right suprahilar region. Right central venous catheter tip extending into the right atrium. Mild cardiomegaly. Calcification at the aortic knob. Degenerative changes the spine. Left axillary stent in place. Impression: Diffuse increased interstitial lung markings. Patchy increased markings at the lung bases. Small left pleural effusion. Punctate nodular density in the right suprahilar region. Right central venous catheter tip extending into the right atrium. Mild cardiomegaly. Calcification at the aortic knob. Degenerative changes the spine. Left axillary stent in place.
[2018-06-29] MEDS ORDERED: HEPARIN-NS 5,000 UNITS/500 ML 10,000 UNIT/1,000 ML BAG IV ONE (11:25)
[2018-06-29] MEDS ORDERED: Iohexol 240 200 ML ONE ×2 (11:26→12:51)
--- NOTE | 2018-06-29 11:28 | CP.PCM.CON ---
History of Present Illness - History of Present Illness History of Present Illness: Nephrology Consultation Note: Assessment: Stable AVF dysfunction hyperkalemic with EKG changes, missed hemodialysis Hypertensive Chronic Kidney Disease (I12.0) End stage renal disease (N18.6) dependence on hemodialysis (Z99.2) (MWF) via AVF Anemia (D64.9), Hyperphosphatemia (E83.39), Secondary Hyperparathyroidism (E21.1), HTN (I12.0) Obesity, RCC, hx of nephrectomy Plan: Will plan for HD tomorrow per MWF schedule. Continue with Nephrovite 1 tab/day. if able to use AVF tomorrow during HD, then recommend to d/c femoral catheter PRBC as needed for anemia. not On GRAEME as last Hb 10.5 Continue with phos binders home dose, last phos level: 3.0 BP on low side, hold BP meds Glycemic control, Dialysis consistent diet Further work up/management as per primary team Dose meds/antibiotics (if needed) for ESRD status. Avoid fleets enema/magnesium based laxatives. appreciate vascular surgery input Thanks for allowing me to participate in care of your patient. will follow with you. Please call if any Qs. d/w ICU team Dr Say Salvador Office: [phone] Chief Complaint;access issues reason for consult: ESRD, hyperkalemia HPI: Pt is a 72 F with hx of ESRD on hemodialysis (MWF) via AVF (Dr Wing) @ [facility] [place], last dialysis Thursday, chronic anemia, hyperphosphatemia, secondary hyperparathyroidism, hypertension, obesity, RCC s/p nephrectomy presented with complaints of access dysfunction and unable to get dialysis. renal consult for ESRD management pt was hyperkalemic with EKg changes. admitted to ICU, required temp dialysis access with emergent HD overnight. besides low back pain, she feels better ROS: Cardiovascular: No chest pain. Pulmonary: denies shortness of breath Gastrointestinal: denies abdominal pain no nausea. No vomiting. Genitourinary: No pain while urinating. Denies blood in urine. All other negative Physical Examination: General Appearance: in no acute respiratory distress, co-operative . comfortable obese Vitals reviewed and noted as below Head; Atraumatic, normocephalic ENT: no ulcers no thrush. Tongue is midline. Oropharynx: no rash or ulcers. EYES: Pupils are equal, round and reactive to light accommodation. Eye muscles and extraocular movement intact. Sclera is anicteric. Neck; supple no lymphadenopathy, no thyromegaly or bruit Lungs: Normal respiratory rate/effort. Breath sounds bilateral equal and clear Heart: Normal rate. s1s2 normal. No rub or gallop. Extremities: no edema. No varicose veins. hyperpigmented changes in lower extrem ities noted Neurological: Patient is alert, awake and oriented to person, place and time. No focal deficit. Strength bilateral appropriate and equal Skin: Warm and dry. Normal turgor. No rash. Palpitation: Normal elasticity for age Abdomen: Abdomen is soft. Bowel sounds +. There is no abdominal tenderness, no guarding/rigidity or organomegaly Psych: normal insight and normal affect/mood MSK: no joint tenderness or swelling. Digits and nails normal, no deformity : kidney or bladder not palpable Access: AVF lUE with thrill and bruit. Labs/imaging reviewed. Past medical history, past surgical history, family history, social history, allergy reviewed and noted as below Family Hx: no hx of CKD. Non contributory Past Patient History - Past Medical History & Family History Past Medical History?: Yes - Past Social History Smoking Status: Never Smoked - CARDIAC Hx Atrial Fibrillation: Yes Hx Congestive Heart Failure: Yes Hx Hypercholesterolemia: Yes Hx Hypertension: Yes - PULMONARY Hx Respiratory Disorders: No - NEUROLOGICAL Hx Parkinson's Disease: Yes - HEENT Hx HEENT Problems: No - RENAL Hx Chronic Kidney Disease: Yes Date of Last Dialysis Treatment: 06/25/18 - ENDOCRINE/METABOLIC Hx Endocrine Disorders: Yes Hx Diabetes Mellitus Type 2: Yes - HEMATOLOGICAL/ONCOLOGICAL Hx Anemia: Yes - INTEGUMENTARY Hx Dermatological Problems: No - MUSCULOSKELETAL/RHEUMATOLOGICAL Hx Arthritis: Yes Hx Falls: Yes - GASTROINTESTINAL Hx Gastrointestinal Disorders: No - GENITOURINARY/GYNECOLOGICAL Hx Genitourinary Disorders: Yes 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) - PSYCHIATRIC Hx Substance Use: No - SURGICAL HISTORY Hx Coronary Stent: Yes Hx Kidney Transplant: No (LEFT NEPHRECTOMY IN 2015) - ANESTHESIA Hx Anesthesia: Yes Hx Anesthesia Reactions: No Hx Malignant Hyperthermia: No Has any member of the family had a problem w/ anesthesia?: No Meds Allergies/Adverse Reactions: Allergies Allergy/AdvReac Type Severity Reaction Status Date / Time No Known Allergies Allergy Verified 06/28/18 19:04 - Medications Medications: Current Medications Heparin Sodium (Porcine) (Heparin) 5,000 units SC Q8 IVAN Insulin Human Regular (Novolin R) 0 unit SC Q6H IVAN; Protocol Last Admin: 06/29/18 05:38 Dose: Not Given Results - Vital Signs Recent Vital Signs: Last Vital Signs Temp 97.3 F L 06/29/18 08:00 Pulse 59 L 06/29/18 11:00 Resp 20 06/29/18 11:00 BP 106/32 L 06/29/18 10:40 Pulse Ox 92 L 06/29/18 11:00 - Labs Result Diagrams: 06/29/18 06:10 06/29/18 06:10 Labs: Laboratory Results - last 24 hr 06/28/18 06/28/18 06/28/18 21:24 22:55 22:55 WBC 6.2 RBC 3.84 Hgb 12.2 Hct 37.3 MCV 97.1 MCH 31.9 H MCHC 32.9 L RDW 14.6 H Plt Count 147 MPV 8.3 Neut % (Auto) 86.4 H Lymph % (Auto) 9.0 L [place] % (Auto) 4.0 Eos % (Auto) 0.1 Baso % (Auto) 0.5 Neut # (Auto) 5.4 Lymph # (Auto) 0.6 L [place] # (Auto) 0.3 Eos # (Auto) 0.0 Baso # (Auto) 0.0 Neutrophils % (Manual) 86 H Lymphocytes % (Manual) 9 L Monocytes % (Manual) 5 Platelet Estimate Normal PT 12.5 H INR 1.1 APTT 31 Sodium 134 Potassium 7.5 H* Chloride 95 L Carbon Dioxide 21 L Anion Gap 26 H BUN 146 H* Creatinine 11.0 H* Est GFR ( Amer) 4 Est GFR (Non-Af Amer) 3 POC Glucose (mg/dL) Random Glucose 148 H Calcium 9.2 Phosphorus Magnesium Total Bilirubin 0.6 AST 18 ALT 13 Alkaline Phosphatase 140 H D Troponin I 0.0260 Total Protein 6.8 Albumin 4.3 Globulin 2.5 Albumin/Globulin Ratio 1.7 06/29/18 06/29/18 06/29/18 05:29 06:10 06:10 WBC 5.9 RBC 3.33 L Hgb 10.5 L Hct 32.1 L MCV 96.4 MCH 31.6 H MCHC 32.8 L RDW 14.9 H Plt Count 142 MPV 8.6 Neut % (Auto) Lymph % (Auto) [place] % (Auto) Eos % (Auto) Baso % (Auto) Neut # (Auto) Lymph # (Auto) [place] # (Auto) Eos # (Auto) Baso # (Auto) Neutrophils % (Manual) Lymphocytes % (Manual) Monocytes % (Manual) Platelet Estimate PT INR APTT Sodium 140 Potassium 4.0 Chloride 98 Carbon Dioxide 25 Anion Gap 20 BUN 76 H Creatinine 5.8 H Est GFR ( Amer) 9 Est GFR (Non-Af Amer) 7 POC Glucose (mg/dL) 121 H Random Glucose 115 H D Calcium 8.9 Phosphorus Magnesium Total Bilirubin 0.6 AST 26 ALT 14 Alkaline Phosphatase 140 H Troponin I Total Protein 6.4 Albumin 4.0 Globulin 2.4 Albumin/Globulin Ratio 1.7 06/29/18 06:10 WBC RBC Hgb Hct MCV MCH MCHC RDW Plt Count MPV Neut % (Auto) Lymph % (Auto) [place] % (Auto) Eos % (Auto) Baso % (Auto) Neut # (Auto) Lymph # (Auto) [place] # (Auto) Eos # (Auto) Baso # (Auto) Neutrophils % (Manual) Lymphocytes % (Manual) Monocytes % (Manual) Platelet Estimate PT INR APTT Sodium Potassium Chloride Carbon Dioxide Anion Gap BUN Creatinine Est GFR ( Amer) Est GFR (Non-Af Amer) POC Glucose (mg/dL) Random Glucose Calcium Phosphorus 3.0 Magnesium 2.4 H Total Bilirubin AST ALT Alkaline Phosphatase Troponin I Total Protein Albumin Globulin Albumin/Globulin Ratio
--- NOTE | 2018-06-29 11:44 | CP.CCUPN ---
<Rizwana Em - Last Filed: 06/29/18 11:35> CCU Subjective - Physician Review Subjective (Free Text): 06/29/18 11:45 ICU Progress Note for Dr. Gonzales Patient seen and examined at bedside this morning. Patient states the room is cold due to the air conditioning blowing so she is having some chills. However patient remains afebrile. Denies headache, fever, night sweats. Patient denies chest pain and palpitations. She is aware she is going to the OR today 06/29 for her left AVF. Patient has had HD for 3 years and always had it on her left side. Due to patient's Parkinson's she is unable to get out of bed whenever she needs to go to the bathroom. Bedside commode available. Patient did not have a BM yet here. She requires assistance when walking. Baseline walks with walker. Otherwise no complaints at this time. CCU Objective - Vital Signs / Intake & Output Vital Signs (Last 4 hours): Vital Signs Temp Pulse Resp BP Pulse Ox 06/29/18 11:00 59 L 20 92 L 06/29/18 10:40 60 15 106/32 L 06/29/18 10:00 67 23 06/29/18 09:00 69 12 96 06/29/18 08:39 68 20 101/31 L 94 L 06/29/18 08:00 97.3 F L 65 15 88 L 06/29/18 07:39 65 18 98/29 L 90 L Intake and Output (Last 8hrs): Intake & Output 06/28/18 06/29/18 06/29/18 22:59 06:59 14:59 Intake Total 0 0 Output Total 0 0 Balance 0 0 Weight 174 lb 2.643 oz 179 lb Intake: Intake, IV Amount 0 0 Right Port-A-Cath 0 0 Oral 0 0 Output: Urine 0 0 Urine, Voided 0 0 Other: # Voids Urine, Voided 1 # Bowel Movements 0 - Physical Exam Head: Positive for: Atraumatic, Normocephalic Extroacular Muscles: Positive for: EOMI Nose (External): Positive for: Atraumatic Respiratory/Chest: Positive for: Clear to Auscultation, Good Air Exchange. Negative for: Respiratory Distress, Accessory Muscle Use Cardiovascular: Positive for: Regular Rate and Rhythm Abdomen: Negative for: Tenderness, Distention, Rebound, Guarding Upper Extremity: Positive for: Edema (nonpitting, patient states it is baseline), NORMAL PULSES, Other (left AVF bandaged, c/d/i) Lower Extremity: Negative for: CALF TENDERNESS Skin: Positive for: Warm, Dry, Normal Color Psychiatric: Positive for: Alert - Medications Active Medications: Active Medications Generic Name Dose Route Start Last Admin Trade Name Freq PRN Reason Stop Dose Admin Heparin Sodium (Porcine) 5,000 units 06/29/18 14:00 Heparin SC Q8 [facility] Insulin Human Regular 0 unit 06/29/18 06:00 06/29/18 11:34 Novolin R SC Not Given Q6H [facility] Protocol - Patient Studies Lab Studies: Lab Studies 06/29/18 06/29/18 06/29/18 Range/Units 11:05 06:10 06:10 WBC (4.8-10.8) K/uL RBC (3.80-5.20) Mil/uL Hgb (11.0-16.0) g/dL Hct (34.0-47.0) % MCV (81.0-99.0) fL MCH (27.0-31.0) pg MCHC (33.0-37.0) g/dL RDW (11.5-14.5) % Plt Count (130-400) K/uL MPV (7.2-11.7) fL Neut % (Auto) (50.0-75.0) % Lymph % (Auto) (20.0-40.0) % Caroline % (Auto) (0.0-10.0) % Eos % (Auto) (0.0-4.0) % Baso % (Auto) (0.0-2.0) % Neut # (Auto) (1.8-7.0) K/uL Lymph # (Auto) (1.0-4.3) K/uL Caroline # (Auto) (0.0-0.8) K/uL Eos # (Auto) (0.0-0.7) K/uL Baso # (Auto) (0.0-0.2) K/uL Neutrophils % (Manual) (50-75) % Lymphocytes % (Manual) (20-40) % Monocytes % (Manual) (0-10) % Platelet Estimate (NORMAL) PT (9.7-12.2) SECONDS INR APTT (21-34) SECONDS Sodium 140 (132-148) mmol/L Potassium 4.0 (3.6-5.2) mmol/L Chloride 98 (98-107) mmol/L Carbon Dioxide 25 (22-30) mmol/L Anion Gap 20 (10-20) BUN 76 H (7-17) mg/dL Creatinine 5.8 H (0.7-1.2) mg/dL Est GFR ( Amer) 9 Est GFR (Non-Af Amer) 7 POC Glucose (mg/dL) 120 H (65-110) mg/dL Random Glucose 115 H D (65-105) mg/dL Calcium 8.9 (8.6-10.4) mg/dl Phosphorus 3.0 (2.5-4.5) mg/dL Magnesium 2.4 H (1.6-2.3) mg/dL Total Bilirubin 0.6 (0.2-1.3) mg/dL AST 26 (14-36) U/L ALT 14 (9-52) U/L Alkaline Phosphatase 140 H (38-126) U/L Troponin I (0.00-0.120) ng/mL Total Protein 6.4 (6.3-8.3) g/dL Albumin 4.0 (3.5-5.0) g/dL Globulin 2.4 (2.2-3.9) gm/dL Albumin/Globulin Ratio 1.7 (1.0-2.1) 06/29/18 06/29/18 06/28/18 Range/Units 06:10 05:29 22:55 WBC 5.9 (4.8-10.8) K/uL RBC 3.33 L (3.80-5.20) Mil/uL Hgb 10.5 L (11.0-16.0) g/dL Hct 32.1 L (34.0-47.0) % MCV 96.4 (81.0-99.0) fL MCH 31.6 H (27.0-31.0) pg MCHC 32.8 L (33.0-37.0) g/dL RDW 14.9 H (11.5-14.5) % Plt Count 142 (130-400) K/uL MPV 8.6 (7.2-11.7) fL Neut % (Auto) (50.0-75.0) % Lymph % (Auto) (20.0-40.0) % Caroline % (Auto) (0.0-10.0) % Eos % (Auto) (0.0-4.0) % Baso % (Auto) (0.0-2.0) % Neut # (Auto) (1.8-7.0) K/uL Lymph # (Auto) (1.0-4.3) K/uL Caroline # (Auto) (0.0-0.8) K/uL Eos # (Auto) (0.0-0.7) K/uL Baso # (Auto) (0.0-0.2) K/uL Neutrophils % (Manual) (50-75) % Lymphocytes % (Manual) (20-40) % Monocytes % (Manual) (0-10) % Platelet Estimate (NORMAL) PT (9.7-12.2) SECONDS INR APTT (21-34) SECONDS Sodium 134 (132-148) mmol/L Potassium 7.5 H* (3.6-5.2) mmol/L Chloride 95 L (98-107) mmol/L Carbon Dioxide 21 L (22-30) mmol/L Anion Gap 26 H (10-20) BUN 146 H* (7-17) mg/dL Creatinine 11.0 H* (0.7-1.2) mg/dL Est GFR ( Amer) 4 Est GFR (Non-Af Amer) 3 POC Glucose (mg/dL) 121 H (65-110) mg/dL Random Glucose 148 H (65-105) mg/dL Calcium 9.2 (8.6-10.4) mg/dl Phosphorus (2.5-4.5) mg/dL Magnesium (1.6-2.3) mg/dL Total Bilirubin 0.6 (0.2-1.3) mg/dL AST 18 (14-36) U/L ALT 13 (9-52) U/L Alkaline Phosphatase 140 H D (38-126) U/L Troponin I 0.0260 (0.00-0.120) ng/mL Total Protein 6.8 (6.3-8.3) g/dL Albumin 4.3 (3.5-5.0) g/dL Globulin 2.5 (2.2-3.9) gm/dL Albumin/Globulin Ratio 1.7 (1.0-2.1) 06/28/18 06/28/18 Range/Units 22:55 21:24 WBC 6.2 (4.8-10.8) K/uL RBC 3.84 (3.80-5.20) Mil/uL Hgb 12.2 (11.0-16.0) g/dL Hct 37.3 (34.0-47.0) % MCV 97.1 (81.0-99.0) fL MCH 31.9 H (27.0-31.0) pg MCHC 32.9 L (33.0-37.0) g/dL RDW 14.6 H (11.5-14.5) % Plt Count 147 (130-400) K/uL MPV 8.3 (7.2-11.7) fL Neut % (Auto) 86.4 H (50.0-75.0) % Lymph % (Auto) 9.0 L (20.0-40.0) % Caroline % (Auto) 4.0 (0.0-10.0) % Eos % (Auto) 0.1 (0.0-4.0) % Baso % (Auto) 0.5 (0.0-2.0) % Neut # (Auto) 5.4 (1.8-7.0) K/uL Lymph # (Auto) 0.6 L (1.0-4.3) K/uL Caroline # (Auto) 0.3 (0.0-0.8) K/uL Eos # (Auto) 0.0 (0.0-0.7) K/uL Baso # (Auto) 0.0 (0.0-0.2) K/uL Neutrophils % (Manual) 86 H (50-75) % Lymphocytes % (Manual) 9 L (20-40) % Monocytes % (Manual) 5 (0-10) % Platelet Estimate Normal (NORMAL) PT 12.5 H (9.7-12.2) SECONDS INR 1.1 APTT 31 (21-34) SECONDS Sodium (132-148) mmol/L Potassium (3.6-5.2) mmol/L Chloride (98-107) mmol/L Carbon Dioxide (22-30) mmol/L Anion Gap (10-20) BUN (7-17) mg/dL Creatinine (0.7-1.2) mg/dL Est GFR ( Amer) Est GFR (Non-Af Amer) POC Glucose (mg/dL) (65-110) mg/dL Random Glucose (65-105) mg/dL Calcium (8.6-10.4) mg/dl Phosphorus (2.5-4.5) mg/dL Magnesium (1.6-2.3) mg/dL Total Bilirubin (0.2-1.3) mg/dL AST (14-36) U/L ALT (9-52) U/L Alkaline Phosphatase (38-126) U/L Troponin I (0.00-0.120) ng/mL Total Protein (6.3-8.3) g/dL Albumin (3.5-5.0) g/dL Globulin (2.2-3.9) gm/dL Albumin/Globulin Ratio (1.0-2.1) Laboratory Results - last 24 hr 06/28/18 06/28/18 06/28/18 21:24 22:55 22:55 WBC 6.2 RBC 3.84 Hgb 12.2 Hct 37.3 MCV 97.1 MCH 31.9 H MCHC 32.9 L RDW 14.6 H Plt Count 147 MPV 8.3 Neut % (Auto) 86.4 H Lymph % (Auto) 9.0 L Caroline % (Auto) 4.0 Eos % (Auto) 0.1 Baso % (Auto) 0.5 Neut # (Auto) 5.4 Lymph # (Auto) 0.6 L Caroline # (Auto) 0.3 Eos # (Auto) 0.0 Baso # (Auto) 0.0 Neutrophils % (Manual) 86 H Lymphocytes % (Manual) 9 L Monocytes % (Manual) 5 Platelet Estimate Normal PT 12.5 H INR 1.1 APTT 31 Sodium 134 Potassium 7.5 H* Chloride 95 L Carbon Dioxide 21 L Anion Gap 26 H BUN 146 H* Creatinine 11.0 H* Est GFR ( Amer) 4 Est GFR (Non-Af Amer) 3 POC Glucose (mg/dL) Random Glucose 148 H Calcium 9.2 Phosphorus Magnesium Total Bilirubin 0.6 AST 18 ALT 13 Alkaline Phosphatase 140 H D Troponin I 0.0260 Total Protein 6.8 Albumin 4.3 Globulin 2.5 Albumin/Globulin Ratio 1.7 06/29/18 06/29/18 06/29/18 05:29 06:10 06:10 WBC 5.9 RBC 3.33 L Hgb 10.5 L Hct 32.1 L MCV 96.4 MCH 31.6 H MCHC 32.8 L RDW 14.9 H Plt Count 142 MPV 8.6 Neut % (Auto) Lymph % (Auto) Caroline % (Auto) Eos % (Auto) Baso % (Auto) Neut # (Auto) Lymph # (Auto) Caroline # (Auto) Eos # (Auto) Baso # (Auto) Neutrophils % (Manual) Lymphocytes % (Manual) Monocytes % (Manual) Platelet Estimate PT INR APTT Sodium 140 Potassium 4.0 Chloride 98 Carbon Dioxide 25 Anion Gap 20 BUN 76 H Creatinine 5.8 H Est GFR ( Amer) 9 Est GFR (Non-Af Amer) 7 POC Glucose (mg/dL) 121 H Random Glucose 115 H D Calcium 8.9 Phosphorus Magnesium Total Bilirubin 0.6 AST 26 ALT 14 Alkaline Phosphatase 140 H Troponin I Total Protein 6.4 Albumin 4.0 Globulin 2.4 Albumin/Globulin Ratio 1.7 06/29/18 06/29/18 06:10 11:05 WBC RBC Hgb Hct MCV MCH MCHC RDW Plt Count MPV Neut % (Auto) Lymph % (Auto) Caroline % (Auto) Eos % (Auto) Baso % (Auto) Neut # (Auto) Lymph # (Auto) Caroline # (Auto) Eos # (Auto) Baso # (Auto) Neutrophils % (Manual) Lymphocytes % (Manual) Monocytes % (Manual) Platelet Estimate PT INR APTT Sodium Potassium Chloride Carbon Dioxide Anion Gap BUN Creatinine Est GFR ( Amer) Est GFR (Non-Af Amer) POC Glucose (mg/dL) 120 H Random Glucose Calcium Phosphorus 3.0 Magnesium 2.4 H Total Bilirubin AST ALT Alkaline Phosphatase Troponin I Total Protein Albumin Globulin Albumin/Globulin Ratio Radiology Impressions: Radiology Impressions Chest X-Ray 06/28/18 19:53 Impression: Diffuse increased interstitial lung markings. Patchy increased markings at the lung bases. Small left pleural effusion. Punctate nodular density in the right suprahilar region. Right central venous catheter tip extending into the right atrium. Mild cardiomegaly. Calcification at the aortic knob. Degenerative changes the spine. Left axillary stent in place. Sacrum and Coccyx X-Ray 06/28/18 19:53 IMPRESSION: No sacral or coccygeal fracture appreciated. Other findings as above. EKG/Cardiology Studies: Cardiology / EKG Studies 06/28/18 19:53 ELECTROCARDIOGRAM Stat Comment: Mode Of Transportation: BED Reason For Exam: chest pain Fingerstick Blood Sugar Results: 120 Critical Care Progress Note - Nutrition Nutrition: Nutrition Category Date Time Status NPO Diet [DIET] Diets 06/29/18 Breakfast Active Assessment/Plan - Assessment and Plan (Free Text) Assessment: 72 y/o female with PMHx of DM, ESRD on HD MWF (@ [facility]), Afib, CAD w/ stent, Parkinson's disease, left nephrectomy 2/ renal CA presented 06/29 due to clot in her left AVF. Due to the left AVF clot, she was unable to receive her routine dialysis yesterday 06/28 (Thu), presented with bradycardia/EKG changes, hyperkalemia (K 7.5) and severe kidney injury BUN/Cr 146/11. Patient s/p insulin, d50, kayexalate, Ca gluconate in ED. Albuterol given in ICU. Dialysis performed. Patient currently stable in ICU. neuro -AAOx3 -no acute issues CV -hemodynamically stable -bradycardia resolved, K now 7.5 -> 4 Pulm -no acute issues -breathing on RA now -maintain spo2 > 92% Heme -anemia of chronic disease -CBC qam Renal -patient to OR today 12 noon 06/29 for fistulogram and possible permacath per surgery -surgery on board, continue to follow recs -BUN/Cr improved from admission 140/11 -> 7.6/5.8 -CMP qAM -nephro Dr. Salvador on board, appreciate recs. ID -patient afebrile and no leukocytosis -continue to monitor Endo -DM2 -SISS GI -no acute issues -NPO DVT ppx: heparin sq (never given and held due to surgery; RN aware) and SCDs GI ppx: not indicated dispo: likely stable for downgrade to [facility] hospital status after OR. Will continue to monitor and follow post op. case discussed with Dr. Christian Em PGY1 <Sandor Gonzales S - Last Filed: 06/29/18 16:40> CCU Subjective - Physician Review Critical Care Time Spent (in minutes): 35 CCU Objective - Vital Signs / Intake & Output Vital Signs (Last 4 hours): Vital Signs Temp Pulse Resp BP Pulse Ox 06/29/18 16:00 62 20 96 06/29/18 15:58 61 19 97/34 L 100 06/29/18 15:43 61 15 103/31 L 98 06/29/18 15:28 62 20 108/29 L 98 06/29/18 15:13 60 17 120/48 L 98 06/29/18 15:00 61 16 99 06/29/18 14:58 64 23 106/37 L 06/29/18 14:43 61 22 114/28 L 95 06/29/18 14:28 59 L 22 109/28 L 99 06/29/18 14:15 96.3 F L 62 18 123/38 L 96 06/29/18 14:13 63 16 123/38 L 93 L 06/29/18 14:10 62 91 L Intake and Output (Last 8hrs): Intake & Output 06/29/18 06/29/18 06/29/18 06:59 14:59 22:59 Intake Total 0 350 250 Output Total 0 0 0 Balance 0 350 250 Weight 179 lb Intake: IV 350 Intake, IV Amount 0 0 250 Right Port-A-Cath 0 0 250 Oral 0 0 0 Output: Urine 0 0 0 Urine, Voided 0 0 0 Other: # Voids Urine, Voided 1 # Bowel Movements 0 0 - Medications Active Medications: Active Medications Generic Name Dose Route Start Last Admin Trade Name Freq PRN Reason Stop Dose Admin Acetaminophen 650 mg 06/29/18 15:43 Tylenol 325mg Tab PO Q6 PRN pain+fever Heparin Sodium (Porcine) 5,000 units 06/29/18 14:00 06/29/18 13:50 Heparin SC Not Given Q8 [facility] Insulin Human Regular 0 unit 06/29/18 06:00 06/29/18 11:34 Novolin R SC Not Given Q6H [facility] Protocol - Patient Studies Lab Studies: Lab Studies 01/08/19 01/08/19 01/08/19 Range/Units 11:05 06:10 06:10 WBC (4.8-10.8) K/uL RBC (3.80-5.20) Mil/uL Hgb (11.0-16.0) g/dL Hct (34.0-47.0) % MCV (81.0-99.0) fL MCH (27.0-31.0) pg MCHC (33.0-37.0) g/dL RDW (11.5-14.5) % Plt Count (130-400) K/uL MPV (7.2-11.7) fL Neut % (Auto) (50.0-75.0) % Lymph % (Auto) (20.0-40.0) % Caroline % (Auto) (0.0-10.0) % Eos % (Auto) (0.0-4.0) % Baso % (Auto) (0.0-2.0) % Neut # (Auto) (1.8-7.0) K/uL Lymph # (Auto) (1.0-4.3) K/uL Caroline # (Auto) (0.0-0.8) K/uL Eos # (Auto) (0.0-0.7) K/uL Baso # (Auto) (0.0-0.2) K/uL Neutrophils % (Manual) (50-75) % Lymphocytes % (Manual) (20-40) % Monocytes % (Manual) (0-10) % Platelet Estimate (NORMAL) PT (9.7-12.2) SECONDS INR APTT (21-34) SECONDS Sodium 140 (132-148) mmol/L Potassium 4.0 (3.6-5.2) mmol/L Chloride 98 (98-107) mmol/L Carbon Dioxide 25 (22-30) mmol/L Anion Gap 20 (10-20) BUN 76 H (7-17) mg/dL Creatinine 5.8 H (0.7-1.2) mg/dL Est GFR ( Amer) 9 Est GFR (Non-Af Amer) 7 POC Glucose (mg/dL) 120 H (65-110) mg/dL Random Glucose 115 H D (65-105) mg/dL Calcium 8.9 (8.6-10.4) mg/dl Phosphorus 3.0 (2.5-4.5) mg/dL Magnesium 2.4 H (1.6-2.3) mg/dL Total Bilirubin 0.6 (0.2-1.3) mg/dL AST 26 (14-36) U/L ALT 14 (9-52) U/L Alkaline Phosphatase 140 H (38-126) U/L Troponin I (0.00-0.120) ng/mL Total Protein 6.4 (6.3-8.3) g/dL Albumin 4.0 (3.5-5.0) g/dL Globulin 2.4 (2.2-3.9) gm/dL Albumin/Globulin Ratio 1.7 (1.0-2.1) 06/29/18 06/29/18 06/28/18 Range/Units 06:10 05:29 22:55 WBC 5.9 (4.8-10.8) K/uL RBC 3.33 L (3.80-5.20) Mil/uL Hgb 10.5 L (11.0-16.0) g/dL Hct 32.1 L (34.0-47.0) % MCV 96.4 (81.0-99.0) fL MCH 31.6 H (27.0-31.0) pg MCHC 32.8 L (33.0-37.0) g/dL RDW 14.9 H (11.5-14.5) % Plt Count 142 (130-400) K/uL MPV 8.6 (7.2-11.7) fL Neut % (Auto) (50.0-75.0) % Lymph % (Auto) (20.0-40.0) % Caroline % (Auto) (0.0-10.0) % Eos % (Auto) (0.0-4.0) % Baso % (Auto) (0.0-2.0) % Neut # (Auto) (1.8-7.0) K/uL Lymph # (Auto) (1.0-4.3) K/uL Caroline # (Auto) (0.0-0.8) K/uL Eos # (Auto) (0.0-0.7) K/uL Baso # (Auto) (0.0-0.2) K/uL Neutrophils % (Manual) (50-75) % Lymphocytes % (Manual) (20-40) % Monocytes % (Manual) (0-10) % Platelet Estimate (NORMAL) PT (9.7-12.2) SECONDS INR APTT (21-34) SECONDS Sodium 134 (132-148) mmol/L Potassium 7.5 H* (3.6-5.2) mmol/L Chloride 95 L (98-107) mmol/L Carbon Dioxide 21 L (22-30) mmol/L Anion Gap 26 H (10-20) BUN 146 H* (7-17) mg/dL Creatinine 11.0 H* (0.7-1.2) mg/dL Est GFR ( Amer) 4 Est GFR (Non-Af Amer) 3 POC Glucose (mg/dL) 121 H (65-110) mg/dL Random Glucose 148 H (65-105) mg/dL Calcium 9.2 (8.6-10.4) mg/dl Phosphorus (2.5-4.5) mg/dL Magnesium (1.6-2.3) mg/dL Total Bilirubin 0.6 (0.2-1.3) mg/dL AST 18 (14-36) U/L ALT 13 (9-52) U/L Alkaline Phosphatase 140 H D (38-126) U/L Troponin I 0.0260 (0.00-0.120) ng/mL Total Protein 6.8 (6.3-8.3) g/dL Albumin 4.3 (3.5-5.0) g/dL Globulin 2.5 (2.2-3.9) gm/dL Albumin/Globulin Ratio 1.7 (1.0-2.1) 06/28/18 06/28/18 Range/Units 22:55 21:24 WBC 6.2 (4.8-10.8) K/uL RBC 3.84 (3.80-5.20) Mil/uL Hgb 12.2 (11.0-16.0) g/dL Hct 37.3 (34.0-47.0) % MCV 97.1 (81.0-99.0) fL MCH 31.9 H (27.0-31.0) pg MCHC 32.9 L (33.0-37.0) g/dL RDW 14.6 H (11.5-14.5) % Plt Count 147 (130-400) K/uL MPV 8.3 (7.2-11.7) fL Neut % (Auto) 86.4 H (50.0-75.0) % Lymph % (Auto) 9.0 L (20.0-40.0) % Caroline % (Auto) 4.0 (0.0-10.0) % Eos % (Auto) 0.1 (0.0-4.0) % Baso % (Auto) 0.5 (0.0-2.0) % Neut # (Auto) 5.4 (1.8-7.0) K/uL Lymph # (Auto) 0.6 L (1.0-4.3) K/uL Caroline # (Auto) 0.3 (0.0-0.8) K/uL Eos # (Auto) 0.0 (0.0-0.7) K/uL Baso # (Auto) 0.0 (0.0-0.2) K/uL Neutrophils % (Manual) 86 H (50-75) % Lymphocytes % (Manual) 9 L (20-40) % Monocytes % (Manual) 5 (0-10) % Platelet Estimate Normal (NORMAL) PT 12.5 H (9.7-12.2) SECONDS INR 1.1 APTT 31 (21-34) SECONDS Sodium (132-148) mmol/L Potassium (3.6-5.2) mmol/L Chloride (98-107) mmol/L Carbon Dioxide (22-30) mmol/L Anion Gap (10-20) BUN (7-17) mg/dL Creatinine (0.7-1.2) mg/dL Est GFR ( Amer) Est GFR (Non-Af Amer) POC Glucose (mg/dL) (65-110) mg/dL Random Glucose (65-105) mg/dL Calcium (8.6-10.4) mg/dl Phosphorus (2.5-4.5) mg/dL Magnesium (1.6-2.3) mg/dL Total Bilirubin (0.2-1.3) mg/dL AST (14-36) U/L ALT (9-52) U/L Alkaline Phosphatase (38-126) U/L Troponin I (0.00-0.120) ng/mL Total Protein (6.3-8.3) g/dL Albumin (3.5-5.0) g/dL Globulin (2.2-3.9) gm/dL Albumin/Globulin Ratio (1.0-2.1) Laboratory Results - last 24 hr 06/28/18 06/28/18 06/28/18 21:24 22:55 22:55 WBC 6.2 RBC 3.84 Hgb 12.2 Hct 37.3 MCV 97.1 MCH 31.9 H MCHC 32.9 L RDW 14.6 H Plt Count 147 MPV 8.3 Neut % (Auto) 86.4 H Lymph % (Auto) 9.0 L Caroline % (Auto) 4.0 Eos % (Auto) 0.1 Baso % (Auto) 0.5 Neut # (Auto) 5.4 Lymph # (Auto) 0.6 L Caroline # (Auto) 0.3 Eos # (Auto) 0.0 Baso # (Auto) 0.0 Neutrophils % (Manual) 86 H Lymphocytes % (Manual) 9 L Monocytes % (Manual) 5 Platelet Estimate Normal PT 12.5 H INR 1.1 APTT 31 Sodium 134 Potassium 7.5 H* Chloride 95 L Carbon Dioxide 21 L Anion Gap 26 H BUN 146 H* Creatinine 11.0 H* Est GFR ( Amer) 4 Est GFR (Non-Af Amer) 3 POC Glucose (mg/dL) Random Glucose 148 H Calcium 9.2 Phosphorus Magnesium Total Bilirubin 0.6 AST 18 ALT 13 Alkaline Phosphatase 140 H D Troponin I 0.0260 Total Protein 6.8 Albumin 4.3 Globulin 2.5 Albumin/Globulin Ratio 1.7 06/29/18 06/29/18 06/29/18 05:29 06:10 06:10 WBC 5.9 RBC 3.33 L Hgb 10.5 L Hct 32.1 L MCV 96.4 MCH 31.6 H MCHC 32.8 L RDW 14.9 H Plt Count 142 MPV 8.6 Neut % (Auto) Lymph % (Auto) Caroline % (Auto) Eos % (Auto) Baso % (Auto) Neut # (Auto) Lymph # (Auto) Caroline # (Auto) Eos # (Auto) Baso # (Auto) Neutrophils % (Manual) Lymphocytes % (Manual) Monocytes % (Manual) Platelet Estimate PT INR APTT Sodium 140 Potassium 4.0 Chloride 98 Carbon Dioxide 25 Anion Gap 20 BUN 76 H Creatinine 5.8 H Est GFR ( Amer) 9 Est GFR (Non-Af Amer) 7 POC Glucose (mg/dL) 121 H Random Glucose 115 H D Calcium 8.9 Phosphorus Magnesium Total Bilirubin 0.6 AST 26 ALT 14 Alkaline Phosphatase 140 H Troponin I Total Protein 6.4 Albumin 4.0 Globulin 2.4 Albumin/Globulin Ratio 1.7 06/29/18 06/29/18 06:10 11:05 WBC RBC Hgb Hct MCV MCH MCHC RDW Plt Count MPV Neut % (Auto) Lymph % (Auto) Caroline % (Auto) Eos % (Auto) Baso % (Auto) Neut # (Auto) Lymph # (Auto) Caroline # (Auto) Eos # (Auto) Baso # (Auto) Neutrophils % (Manual) Lymphocytes % (Manual) Monocytes % (Manual) Platelet Estimate PT INR APTT Sodium Potassium Chloride Carbon Dioxide Anion Gap BUN Creatinine Est GFR ( Amer) Est GFR (Non-Af Amer) POC Glucose (mg/dL) 120 H Random Glucose Calcium Phosphorus 3.0 Magnesium 2.4 H Total Bilirubin AST ALT Alkaline Phosphatase Troponin I Total Protein Albumin Globulin Albumin/Globulin Ratio Radiology Impressions: Radiology Impressions Chest X-Ray 06/28/18 19:53 Impression: Diffuse increased interstitial lung markings. Patchy increased markings at the lung bases. Small left pleural effusion. Punctate nodular density in the right suprahilar region. Right central venous catheter tip extending into the right atrium. Mild cardiomegaly. Calcification at the aortic knob. Degenerative changes the spine. Left axillary stent in place. Sacrum and Coccyx X-Ray 06/28/18 19:53 IMPRESSION: No sacral or coccygeal fracture appreciated. Other findings as above. EKG/Cardiology Studies: Cardiology / EKG Studies 06/28/18 19:53 ELECTROCARDIOGRAM Stat Comment: Mode Of Transportation: BED Reason For Exam: chest pain Critical Care Progress Note - Nutrition Nutrition: Nutrition Category Date Time Status Renal Diet [DIET] Diets 06/29/18 Dinner Active Attending/Attestation - Attestation I have personally seen and examined this patient.: Yes I have fully participated in the care of the patient.: Yes I have reviewed all pertinent clinical information: Yes Notes (Text): 06/29/18 16:39 Patient seen and examined in the intensive care unit. Status post hemodialysis s/p AV Fistulogram, Thrombolysis, Balloon angioplasty (7Fr for venous, 4Fr for arterial) Stable for transfer to floor
[2018-06-29] MEDS ORDERED: ceFAZolin IV 1 gm in Dextrose 1 GM/50 ML BAG IVPB ONE (12:00)
[2018-06-29] MEDS ORDERED: Midazolam 2 MG/2 ML VIAL ONE (12:08)
[2018-06-29] MEDS ORDERED: Lidocaine Hydrochloride 20 ML INJ ONE (12:29)
[2018-06-29] MEDS ORDERED: Propofol 10 mg/ml Inj (20 ML) ONE (13:22)
--- NOTE | 2018-06-29 14:17 | PCM.SURG1 ---
Surgeon's Initial Post Op Note - Surgeon's Notes Surgeon: Dr Martinez Specification Consultant: Dr. Mullen PGY1 Type of Anesthesia: IV Sedation Pre-Operative Diagnosis: Malfunctioning left arm AV fistula Operative Findings: see operative dictation Post-Operative Diagnosis: same Operation Performed: AV Fistulogram, Thrombolysis, Balloon angioplasty (7Fr for venous, 4Fr for arterial) Specimen/Specimens Removed: None Estimated Blood Loss: EBL {In ML}: 75 Blood Products Given: N/A Drains Used: No Drains Post-Op Condition: Good Date of Surgery/Procedure: 06/29/18 Time of Surgery/Procedure: 14:16
--- NOTE | 2018-06-29 15:15 | RAD ---
Date of service: 06/29/2018 PROCEDURE: Intraoperative Fluoroscopy. HISTORY: MALFUTION AV FISTULA FINDINGS: Fluoroscopic assistance was provided for fistulagram. Please refer to the operative report from ANGELINA Holden. Total fluoroscopic time (continuous mode) utilized during the procedure 187.4 seconds. Dose report: DLP [id number] (mGy/m2)
--- NOTE | 2018-06-29 16:31 | CP.PCM.HP ---
History of Present Illness - History of Present Illness History of Present Illness: 72yo F. PMHX Anemia of chronic disease, Arthritis, Atrial Fibrillation, CAD with stent, CHF, Diabetes, HTN, Hypercholesterolemia, Parkinson's Disease, , I&D of breast and extremity abscesses, left nephrectomy secondary to Renal carcinoma, currently on chemotherapy, ESRD on HD M/W/. Had dialysis on Thursday, went to dialysis today, but could not perform secondary to clotted left AVF. presented to ED for urgent dialysis and dialysis catheter placement, with the complication of severe hyperkalemia with EKG changes and bradycardia. Present on Admission - Present on Admission Any Indicators Present on Admission: No Review of Systems - Review of Systems All systems: reviewed and no additional remarkable complaints except (As mentioned in HPI) Past Patient History - Past Medical History & Family History Past Medical History?: Yes - Past Social History Smoking Status: Never Smoked - CARDIAC Hx Atrial Fibrillation: Yes Hx Congestive Heart Failure: Yes Hx Hypercholesterolemia: Yes Hx Hypertension: Yes - PULMONARY Hx Respiratory Disorders: No - NEUROLOGICAL Hx Parkinson's Disease: Yes - HEENT Hx HEENT Problems: No - RENAL Hx Chronic Kidney Disease: Yes Date of Last Dialysis Treatment: 06/25/18 - ENDOCRINE/METABOLIC Hx Endocrine Disorders: Yes Hx Diabetes Mellitus Type 2: Yes - HEMATOLOGICAL/ONCOLOGICAL Hx Anemia: Yes - INTEGUMENTARY Hx Dermatological Problems: No - MUSCULOSKELETAL/RHEUMATOLOGICAL Hx Arthritis: Yes Hx Falls: Yes - GASTROINTESTINAL Hx Gastrointestinal Disorders: No - GENITOURINARY/GYNECOLOGICAL Hx Genitourinary Disorders: Yes 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) - PSYCHIATRIC Hx Substance Use: No - SURGICAL HISTORY Hx Coronary Stent: Yes Hx Kidney Transplant: No (LEFT NEPHRECTOMY IN 2014) - ANESTHESIA Hx Anesthesia: Yes Hx Anesthesia Reactions: No Hx Malignant Hyperthermia: No Has any member of the family had a problem w/ anesthesia?: No Meds Allergies/Adverse Reactions: Allergies Allergy/AdvReac Type Severity Reaction Status Date / Time No Known Allergies Allergy Verified 06/28/18 19:04 Physical Exam - Head Exam Head Exam: NORMAL INSPECTION - Eye Exam Eye Exam: Normal appearance - ENT Exam ENT Exam: Mucous Membranes Moist - Respiratory Exam Respiratory Exam: Clear to Auscultation Bilateral - Cardiovascular Exam Cardiovascular Exam: REGULAR RHYTHM, +S1, +S2 - GI/Abdominal Exam GI & Abdominal Exam: Normal Bowel Sounds, Soft - Extremities Exam Extremities exam: Positive for: normal inspection Results - Vital Signs Recent Vital Signs: Last Vital Signs Temp 96.3 F L 06/29/18 14:15 Pulse 62 06/29/18 16:00 Resp 20 06/29/18 16:00 BP 97/34 L 06/29/18 15:58 Pulse Ox 96 06/29/18 16:00 - Labs Result Diagrams: 06/30/18 05:20 06/30/18 05:20 Labs: Laboratory Results - last 24 hr 06/28/18 06/28/18 06/28/18 21:24 22:55 22:55 WBC 6.2 RBC 3.84 Hgb 12.2 Hct 37.3 MCV 97.1 MCH 31.9 H MCHC 32.9 L RDW 14.6 H Plt Count 147 MPV 8.3 Neut % (Auto) 86.4 H Lymph % (Auto) 9.0 L [place] % (Auto) 4.0 Eos % (Auto) 0.1 Baso % (Auto) 0.5 Neut # (Auto) 5.4 Lymph # (Auto) 0.6 L [place] # (Auto) 0.3 Eos # (Auto) 0.0 Baso # (Auto) 0.0 Neutrophils % (Manual) 86 H Lymphocytes % (Manual) 9 L Monocytes % (Manual) 5 Platelet Estimate Normal PT 12.5 H INR 1.1 APTT 31 Sodium 134 Potassium 7.5 H* Chloride 95 L Carbon Dioxide 21 L Anion Gap 26 H BUN 146 H* Creatinine 11.0 H* Est GFR ( Amer) 4 Est GFR (Non-Af Amer) 3 POC Glucose (mg/dL) Random Glucose 148 H Calcium 9.2 Phosphorus Magnesium Total Bilirubin 0.6 AST 18 ALT 13 Alkaline Phosphatase 140 H D Troponin I 0.0260 Total Protein 6.8 Albumin 4.3 Globulin 2.5 Albumin/Globulin Ratio 1.7 06/29/18 06/29/18 06/29/18 05:29 06:10 06:10 WBC 5.9 RBC 3.33 L Hgb 10.5 L Hct 32.1 L MCV 96.4 MCH 31.6 H MCHC 32.8 L RDW 14.9 H Plt Count 142 MPV 8.6 Neut % (Auto) Lymph % (Auto) [place] % (Auto) Eos % (Auto) Baso % (Auto) Neut # (Auto) Lymph # (Auto) [place] # (Auto) Eos # (Auto) Baso # (Auto) Neutrophils % (Manual) Lymphocytes % (Manual) Monocytes % (Manual) Platelet Estimate PT INR APTT Sodium 140 Potassium 4.0 Chloride 98 Carbon Dioxide 25 Anion Gap 20 BUN 76 H Creatinine 5.8 H Est GFR ( Amer) 9 Est GFR (Non-Af Amer) 7 POC Glucose (mg/dL) 121 H Random Glucose 115 H D Calcium 8.9 Phosphorus Magnesium Total Bilirubin 0.6 AST 26 ALT 14 Alkaline Phosphatase 140 H Troponin I Total Protein 6.4 Albumin 4.0 Globulin 2.4 Albumin/Globulin Ratio 1.7 06/29/18 06/29/18 06:10 11:05 WBC RBC Hgb Hct MCV MCH MCHC RDW Plt Count MPV Neut % (Auto) Lymph % (Auto) [place] % (Auto) Eos % (Auto) Baso % (Auto) Neut # (Auto) Lymph # (Auto) [place] # (Auto) Eos # (Auto) Baso # (Auto) Neutrophils % (Manual) Lymphocytes % (Manual) Monocytes % (Manual) Platelet Estimate PT INR APTT Sodium Potassium Chloride Carbon Dioxide Anion Gap BUN Creatinine Est GFR ( Amer) Est GFR (Non-Af Amer) POC Glucose (mg/dL) 120 H Random Glucose Calcium Phosphorus 3.0 Magnesium 2.4 H Total Bilirubin AST ALT Alkaline Phosphatase Troponin I Total Protein Albumin Globulin Albumin/Globulin Ratio Assessment & Plan (1) Thrombosis of arteriovenous fistula Status: Acute (2) DM w/o complication type II Status: Acute (3) ESRD (end stage renal disease) Status: Acute (4) Hyperkalemia Status: Acute (5) Hypertension Status: Acute - Assessment and Plan (Free Text) Plan: Vascular surgery consult Patient will need thrombolysis Patient needs emergent hemodialysis Nephrology consult BP control Accu-Chek Insulin sliding scale Continue to follow-up potassium DVT/GI prophylaxis
--- NOTE | 2018-06-30 00:37 | OP ---
PROCEDURE DATE: 06/29/2018 INDICATIONS: The patient is a 72-year-old woman dialyzed by means of left arm access. She appears to be with multiple stents and fistula in this proximal portion, who was seen for unable to be used fistula. OPERATIVE FINDINGS: The patient previously had a right femoral dialysis catheter placed and also has a right-sided Port-A-Cath. FINDINGS: 1. The arterial anastomosis is widely patent, although the proximal 4-5 cm of the fistula was diffusely narrowed. 2. There was no evidence of any central vein stenosis. The innominate superior vena cava and right atrium were widely patent. The other course of the fistula was monitored with stents up to the axilla. There was diffuse stenosis throughout this. In addition, adjacent to the transposition between the fistula part and the stented part, there was diffuse disease. DESCRIPTION OF PROCEDURE: The patient was given local anesthesia. Using ultrasound guidance and micropuncture technique, the graft was punctured. Films were taken demonstrating the above-mentioned findings. We then retracted the sheath back near to the arterial puncture site and infused tPA 4 mg. After this had been done, we awaited appropriate period of time. We then repeated the films and then we dilated this with a 7-mm balloon throughout its course, the entire venous outflow. We then went to the arterial site, made a separate puncture using micropuncture technique and dilated with a 4-mm balloon in the arterial site of the system, which was diffusely narrowed. Nonetheless, there was no significant wasting and the 4-mm access was widely patent. We then moved both the catheters. Pressure was applied to the site and 7-0 [place]-Edward suture was placed here to control bleeding of the skin. BLOOD LOSS FOR THE PROCEDURE: 40 mL. PROCEDURE CARRIED OUT: Fistulogram, left arm; thrombolysis and balloon angioplasty of arterial and venous sites using a 4-mm and 7-mm balloons. Anurag Martinez Jr., MD
[2018-06-30 05:50] LABS: BASO % 0.6 % (0.0-2.0); EOS # 0.1 K/uL (0.0-0.7); EOS % 1.8 % (0.0-4.0); HEMOGLOBIN 9.5 g/dL (11.0-16.0); LYMPH # 0.5 K/uL (1.0-4.3); LYMPH % 13.3 % (20.0-40.0); MEAN CORPUSCULAR HEMOGLOBIN 32.4 pg (27.0-31.0); MEAN CORPUSCULAR HGB CONC 33.4 g/dL (33.0-37.0); MEAN PLATELET VOLUME 8.7 fL (7.2-11.7); MONO # 0.3 K/uL (0.0-0.8); MONO % 7.6 % (0.0-10.0); NEUT # 2.7 K/uL (1.8-7.0); NEUT % 76.7 % (50.0-75.0); NRBC % 0.1 % (0.0-2.0); RBC 2.91 Mil/uL (3.80-5.20); RED CELL DISTRIBUTION WIDTH 15.2 % (11.5-14.5); WHITE BLOOD COUNT 3.5 K/uL (4.8-10.8)
[2018-06-30 06:26] LABS: ALB/GLOB RATIO 1.5 (1.0-2.1); ALBUMIN 3.4 g/dL (3.5-5.0); CALCIUM 8.8 mg/dl (8.6-10.4)
[2018-06-30] MEDS: (Novolin R) Insulin Human Regular 100 units/ml vial SC SCH ×4 (07:45→22:42)
--- NOTE | 2018-06-30 08:09 | CP.PCM.PN ---
Subjective - Date & Time of Evaluation Date of Evaluation: 06/30/18 Time of Evaluation: 08:06 - Subjective Subjective: Vascular Surgery Progress Note for Dr. Martinez 72F seen and evaluated at bedside this morning. No acute events overnight. No complaints this morning. Patient scheduled for dialysis today. Denies f/c, n/v/d, SOB, CP, palpitations, or urinary symptoms. Objective - Vital Signs/Intake and Output Vital Signs (last 24 hours): Temp Pulse Resp BP Pulse Ox 98 F 55 L 19 103/31 L 99 06/30/18 04:00 06/30/18 06:02 06/30/18 06:02 06/30/18 06:02 06/30/18 06:02 Intake and Output: 06/30/18 06/30/18 06:59 18:59 Intake Total 250 Output Total 0 Balance 250 - Medications Medications: Current Medications Acetaminophen (Tylenol 325mg Tab) 650 mg PO Q6 PRN PRN Reason: pain+fever Last Admin: 06/29/18 17:33 Dose: 650 mg Heparin Sodium (Porcine) (Heparin) 5,000 units SC Q8 IVAN Last Admin: 06/30/18 05:50 Dose: 5,000 units Insulin Human Regular (Novolin R) 0 unit SC ACHS [facility]; Protocol Last Admin: 06/29/18 22:37 Dose: Not Given - Labs Labs: 06/30/18 05:20 06/30/18 05:20 PT 12.5 SECONDS (9.7-12.2) H 06/28/18 22:55 INR 1.1 06/28/18 22:55 APTT 31 SECONDS (21-34) 06/28/18 22:55 - Constitutional Appears: Well, Non-toxic, No Acute Distress - Head Exam Head Exam: ATRAUMATIC, NORMAL INSPECTION, NORMOCEPHALIC - Eye Exam Eye Exam: EOMI - ENT Exam ENT Exam: Mucous Membranes Moist - Respiratory Exam Respiratory Exam: NORMAL BREATHING PATTERN. absent: Respiratory Distress - GI/Abdominal Exam GI & Abdominal Exam: Soft, Normal Bowel Sounds. absent: Tenderness - Extremities Exam Additional comments: left AVF palpable thrill with dressing c/d/i palpable radial and ulnar pulses bilaterally - Neurological Exam Neurological Exam: Alert, Awake - Psychiatric Exam Psychiatric exam: Normal Affect, Normal Mood - Skin Skin Exam: Dry, Intact, Normal Color, Warm Additional comments: multiple ecchymosis on upper and lower extremities Assessment and Plan - Assessment and Plan (Free Text) Assessment: 72F s/p AVF fistulagram w/ thrombolysis and angioplasty POD1 Plan: Scheduled for HD today - can use AVF If AVF working, can remove shiley Monitor AVF Monitor distal pulses Transfer out of ICU D/w Dr. Michelle Mullen PGY1
[2018-06-30] MEDS ORDERED: Epoetin Alfa Dialysis 40000 UNIT/ml Inj IV SCH (10:00)
--- NOTE | 2018-06-30 10:50 | CP.PCM.PN ---
Subjective - Date & Time of Evaluation Date of Evaluation: 06/30/18 Time of Evaluation: 10:48 - Subjective Subjective: Nephrology Consultation Note: Assessment: Stable AVF dysfunction s/p fistulogram, thrombolysis 06/29/18 hyperkalemic with EKG changes, missed hemodialysis Hypertensive Chronic Kidney Disease (I12.0) End stage renal disease (N18.6) dependence on hemodialysis (Z99.2) (MWF) via AVF Anemia (D64.9), Hyperphosphatemia (E83.39), Secondary Hyperparathyroidism (E21.1), HTN (I12.0) Obesity, RCC, hx of nephrectomy Plan: Will plan for HD today per MWF schedule. Continue with Nephrovite 1 tab/day. if able to use AVF during HD, then recommend to d/c femoral catheter PRBC as needed for anemia. On GRAEME as last Hb 9.5 Continue with phos binders home dose, last phos level: 5.2 BP on low side, hold BP meds Glycemic control, Dialysis consistent diet Further work up/management as per primary team Dose meds/antibiotics (if needed) for ESRD status. Avoid fleets enema/magnesium based laxatives. appreciate vascular surgery input d/c planning Thanks for allowing me to participate in care of your patient. will follow with you. Please call if any Qs. had d/w team Dr Say Salvador Office: [phone] Chief Complaint;access issues reason for consult: ESRD, hyperkalemia HPI: Pt is a 72 F with hx of ESRD on hemodialysis (MWF) via AVF (Dr Wing) @ [facility] [place], last dialysis Thursday, chronic anemia, hyperphosphatemia, secondary hyperparathyroidism, hypertension, obesity, RCC s/p nephrectomy presented with c omplaints of access dysfunction and unable to get dialysis. renal consult for ESRD management pt was hyperkalemic with EKg changes. admitted to ICU, required temp dialysis access with emergent HD overnight. besides low back pain, she feels better ROS: Cardiovascular: No chest pain. Pulmonary: denies shortness of breath Gastrointestinal: denies abdominal pain no nausea. No vomiting. Genitourinary: No pain while urinating. Denies blood in urine. All other negative reports fall around adelina and skin bruising with it Physical Examination: General Appearance: in no acute respiratory distress, co-operative . comfortable obese Vitals reviewed and noted as below Head; Atraumatic, normocephalic ENT: no ulcers no thrush. Tongue is midline. Oropharynx: no rash or ulcers. EYES: Pupils are equal, round and reactive to light accommodation. Eye muscles and extraocular movement intact. Sclera is anicteric. Neck; supple no lymphadenopathy, no thyromegaly or bruit Lungs: Normal respiratory rate/effort. Breath sounds bilateral equal and clear Heart: Normal rate. s1s2 normal. No rub or gallop. Extremities: no edema. No varicose veins. hyperpigmented changes in lower extremities noted Neurological: Patient is alert, awake and oriented to person, place and time. No focal deficit. Strength bilateral appropriate and equal Skin: Warm and dry. Normal turgor. No rash but has echymoses. Palpitation: Normal elasticity for age Abdomen: Abdomen is soft. Bowel sounds +. There is no abdominal tenderness, no guarding/rigidity or organomegaly Psych: normal insight and normal affect/mood MSK: no joint tenderness or swelling. Digits and nails normal, no deformity : kidney or bladder not palpable Access: AVF lUE with thrill and bruit. Labs/imaging reviewed. Past medical history, past surgical history, family history, social history, allergy reviewed and noted as below Family Hx: no hx of CKD. Non contributory Objective - Vital Signs/Intake and Output Vital Signs (last 24 hours): Temp Pulse Resp BP Pulse Ox 98.4 F 53 L 18 107/36 L 100 06/30/18 08:00 06/30/18 08:41 06/30/18 08:41 06/30/18 08:41 06/30/18 08:41 Intake and Output: 06/30/18 06/30/18 06:59 18:59 Intake Total 250 150 Output Total 0 Balance 250 150 - Medications Medications: Current Medications Acetaminophen (Tylenol 325mg Tab) 650 mg PO Q6 PRN PRN Reason: pain+fever Last Admin: 06/29/18 17:33 Dose: 650 mg Epoetin Wilfred (Procrit) 4,000 unit IV MWF ON LICENSE OF [facility] Heparin Sodium (Porcine) (Heparin) 5,000 units SC Q8 ON LICENSE OF [facility] Last Admin: 06/30/18 05:50 Dose: 5,000 units Insulin Human Regular (Novolin R) 0 unit SC [facility]; Protocol Last Admin: 06/30/18 07:45 Dose: Not Given - Labs Labs: 06/30/18 05:20 06/30/18 05:20 PT 12.5 SECONDS (9.7-12.2) H 06/28/18 22:55 INR 1.1 06/28/18 22:55 APTT 31 SECONDS (21-34) 06/28/18 22:55
--- NOTE | 2018-06-30 10:51 | CP.CCUPN ---
<Rizwana Em - Last Filed: 06/30/18 10:49> CCU Subjective - Physician Review Subjective (Free Text): 06/29/18 11:45 ICU Progress Note for Dr. Gonzales Patient seen and examined at bedside this morning. Patient is AV fistulogram, thrombolysis and angioplasty POD1. With some pain but otherwise endorses doing well. Patient is stable to be transferred from ICU status to med surg status. case discussed with Dr. Christian Em PGY1 CCU Objective - Vital Signs / Intake & Output Vital Signs (Last 4 hours): Vital Signs Temp Pulse Resp BP Pulse Ox 06/30/18 08:41 53 L 18 107/36 L 100 06/30/18 08:00 98.4 F 94 L 06/30/18 07:01 56 L 21 92/35 L Intake and Output (Last 8hrs): Intake & Output 06/29/18 06/30/18 06/30/18 22:59 06:59 14:59 Intake Total 620 0 150 Output Total 0 Balance 620 0 150 Intake: Intake, IV Amount 250 Right Port-A-Cath 250 Oral 370 0 150 Output: Urine 0 Urine, Voided 0 Other: # Bowel Movements 0 - Physical Exam Head: Positive for: Atraumatic, Normocephalic Extroacular Muscles: Positive for: EOMI Nose (External): Positive for: Atraumatic Respiratory/Chest: Positive for: Clear to Auscultation, Good Air Exchange. Negative for: Respiratory Distress, Accessory Muscle Use Cardiovascular: Positive for: Regular Rate and Rhythm Abdomen: Negative for: Tenderness, Distention, Rebound, Guarding Upper Extremity: Positive for: Edema (nonpitting, patient states it is baseline), NORMAL PULSES, Other (left AVF bandaged, c/d/i) Lower Extremity: Negative for: CALF TENDERNESS Skin: Positive for: Warm, Dry, Normal Color Psychiatric: Positive for: Alert - Medications Active Medications: Active Medications Generic Name Dose Route Start Last Admin Trade Name Freq PRN Reason Stop Dose Admin Acetaminophen 650 mg 06/29/18 15:43 06/29/18 17:33 Tylenol 325mg Tab PO 650 mg Q6 PRN Administration pain+fever Epoetin Wilfred 4,000 unit 06/30/18 10:00 Procrit IV MWF [facility] Heparin Sodium (Porcine) 5,000 units 06/29/18 14:00 06/30/18 05:50 Heparin SC 5,000 units Q8 [facility] Administration Insulin Human Regular 0 unit 06/29/18 22:00 06/30/18 07:45 Novolin R SC Not Given ACHS [facility] Protocol - Patient Studies Lab Studies: Lab Studies 06/30/18 06/30/18 06/30/18 Range/Units 07:24 05:20 05:20 WBC 3.5 L (4.8-10.8) K/uL RBC 2.91 L (3.80-5.20) Mil/uL Hgb 9.5 L (11.0-16.0) g/dL Hct 28.3 L (34.0-47.0) % MCV 97.0 (81.0-99.0) fL MCH 32.4 H (27.0-31.0) pg MCHC 33.4 (33.0-37.0) g/dL RDW 15.2 H (11.5-14.5) % Plt Count 118 L D (130-400) K/uL MPV 8.7 (7.2-11.7) fL Neut % (Auto) 76.7 H (50.0-75.0) % Lymph % (Auto) 13.3 L (20.0-40.0) % [place] % (Auto) 7.6 (0.0-10.0) % Eos % (Auto) 1.8 (0.0-4.0) % Baso % (Auto) 0.6 (0.0-2.0) % Neut # (Auto) 2.7 (1.8-7.0) K/uL Lymph # (Auto) 0.5 L (1.0-4.3) K/uL [place] # (Auto) 0.3 (0.0-0.8) K/uL Eos # (Auto) 0.1 (0.0-0.7) K/uL Baso # (Auto) 0.0 (0.0-0.2) K/uL Differential Comment Sodium 136 (132-148) mmol/L Potassium 5.1 (3.6-5.2) mmol/L Chloride 97 L (98-107) mmol/L Carbon Dioxide 24 (22-30) mmol/L Anion Gap 19 (10-20) BUN 98 H (7-17) mg/dL Creatinine 8.6 H* D (0.7-1.2) mg/dL Est GFR ( Amer) 5 Est GFR (Non-Af Amer) 5 POC Glucose (mg/dL) 103 (65-110) mg/dL Random Glucose 92 (65-105) mg/dL Calcium 8.8 (8.6-10.4) mg/dl Phosphorus 5.2 H (2.5-4.5) mg/dL Magnesium 2.5 H (1.6-2.3) mg/dL Total Bilirubin 0.5 (0.2-1.3) mg/dL AST 22 (14-36) U/L ALT 17 (9-52) U/L Alkaline Phosphatase 108 (38-126) U/L Total Protein 5.6 L (6.3-8.3) g/dL Albumin 3.4 L (3.5-5.0) g/dL Globulin 2.2 (2.2-3.9) gm/dL Albumin/Globulin Ratio 1.5 (1.0-2.1) 06/29/18 06/29/18 06/29/18 Range/Units 21:24 17:47 11:05 WBC (4.8-10.8) K/uL RBC (3.80-5.20) Mil/uL Hgb (11.0-16.0) g/dL Hct (34.0-47.0) % MCV (81.0-99.0) fL MCH (27.0-31.0) pg MCHC (33.0-37.0) g/dL RDW (11.5-14.5) % Plt Count (130-400) K/uL MPV (7.2-11.7) fL Neut % (Auto) (50.0-75.0) % Lymph % (Auto) (20.0-40.0) % [place] % (Auto) (0.0-10.0) % Eos % (Auto) (0.0-4.0) % Baso % (Auto) (0.0-2.0) % Neut # (Auto) (1.8-7.0) K/uL Lymph # (Auto) (1.0-4.3) K/uL [place] # (Auto) (0.0-0.8) K/uL Eos # (Auto) (0.0-0.7) K/uL Baso # (Auto) (0.0-0.2) K/uL Differential Comment Sodium (132-148) mmol/L Potassium (3.6-5.2) mmol/L Chloride (98-107) mmol/L Carbon Dioxide (22-30) mmol/L Anion Gap (10-20) BUN (7-17) mg/dL Creatinine (0.7-1.2) mg/dL Est GFR ( Amer) Est GFR (Non-Af Amer) POC Glucose (mg/dL) 142 H 113 H 120 H (65-110) mg/dL Random Glucose (65-105) mg/dL Calcium (8.6-10.4) mg/dl Phosphorus (2.5-4.5) mg/dL Magnesium (1.6-2.3) mg/dL Total Bilirubin (0.2-1.3) mg/dL AST (14-36) U/L ALT (9-52) U/L Alkaline Phosphatase (38-126) U/L Total Protein (6.3-8.3) g/dL Albumin (3.5-5.0) g/dL Globulin (2.2-3.9) gm/dL Albumin/Globulin Ratio (1.0-2.1) Laboratory Results - last 24 hr 06/29/18 06/29/18 06/29/18 11:05 17:47 21:24 WBC RBC Hgb Hct MCV MCH MCHC RDW Plt Count MPV Neut % (Auto) Lymph % (Auto) [place] % (Auto) Eos % (Auto) Baso % (Auto) Neut # (Auto) Lymph # (Auto) [place] # (Auto) Eos # (Auto) Baso # (Auto) Differential Comment Sodium Potassium Chloride Carbon Dioxide Anion Gap BUN Creatinine Est GFR ( Amer) Est GFR (Non-Af Amer) POC Glucose (mg/dL) 120 H 113 H 142 H Random Glucose Calcium Phosphorus Magnesium Total Bilirubin AST ALT Alkaline Phosphatase Total Protein Albumin Globulin Albumin/Globulin Ratio 06/30/18 06/30/18 06/30/18 05:20 05:20 07:24 WBC 3.5 L RBC 2.91 L Hgb 9.5 L Hct 28.3 L MCV 97.0 MCH 32.4 H MCHC 33.4 RDW 15.2 H Plt Count 118 L D MPV 8.7 Neut % (Auto) 76.7 H Lymph % (Auto) 13.3 L [place] % (Auto) 7.6 Eos % (Auto) 1.8 Baso % (Auto) 0.6 Neut # (Auto) 2.7 Lymph # (Auto) 0.5 L [place] # (Auto) 0.3 Eos # (Auto) 0.1 Baso # (Auto) 0.0 Differential Comment Sodium 136 Potassium 5.1 Chloride 97 L Carbon Dioxide 24 Anion Gap 19 BUN 98 H Creatinine 8.6 H* D Est GFR ( Amer) 5 Est GFR (Non-Af Amer) 5 POC Glucose (mg/dL) 103 Random Glucose 92 Calcium 8.8 Phosphorus 5.2 H Magnesium 2.5 H Total Bilirubin 0.5 AST 22 ALT 17 Alkaline Phosphatase 108 Total Protein 5.6 L Albumin 3.4 L Globulin 2.2 Albumin/Globulin Ratio 1.5 Radiology Impressions: Radiology Impressions Chest X-Ray 06/28/18 19:53 Impression: Diffuse increased interstitial lung markings. Patchy increased markings at the lung bases. Small left pleural effusion. Punctate nodular density in the right suprahilar region. Right central venous catheter tip extending into the right atrium. Mild cardiomegaly. Calcification at the aortic knob. Degenerative changes the spine. Left axillary stent in place. Fingerstick Blood Sugar Results: 103 Critical Care Progress Note - Nutrition Nutrition: Nutrition Category Date Time Status Renal Diet [DIET] Diets 06/29/18 Dinner Active <Sandor Gonzales S - Last Filed: 06/30/18 16:42> CCU Subjective - Physician Review Critical Care Time Spent (in minutes): 30 CCU Objective - Vital Signs / Intake & Output Vital Signs (Last 4 hours): Vital Signs Temp Pulse Pulse Resp BP BP Pulse Ox 06/30/18 16:00 98 F 85 17 94 L 06/30/18 15:18 88 19 98/41 L 06/30/18 15:00 87 21 93 L 06/30/18 14:17 88 20 118/39 L 98 06/30/18 14:06 84 22 109/51 L 100 06/30/18 14:00 92 H 21 100 06/30/18 13:45 98 F 89 20 135/42 L 100 06/30/18 13:38 63 18 135/42 L 100 06/30/18 13:29 113/36 L 06/30/18 13:15 118/40 L 06/30/18 13:06 62 20 118/40 L 100 06/30/18 13:00 111/35 L Intake and Output (Last 8hrs): Intake & Output 06/30/18 06/30/18 06/30/18 06:59 14:59 22:59 Intake Total 0 200 Balance 0 200 Intake: Oral 0 200 - Medications Active Medications: Active Medications Generic Name Dose Route Start Last Admin Trade Name Freq PRN Reason Stop Dose Admin Acetaminophen 650 mg 06/29/18 15:43 06/30/18 13:41 Tylenol 325mg Tab PO 650 mg Q6 PRN Administration pain+fever Epoetin Wilfred 4,000 u 06/30/18 12:00 06/30/18 12:46 Procrit IV 4,000 u MWF [facility] Administration Heparin Sodium (Porcine) 5,000 units 06/29/18 14:00 06/30/18 14:27 Heparin SC 5,000 units Q8 [facility] Administration Insulin Human Regular 0 unit 06/29/18 22:00 06/30/18 11:30 Novolin R SC Not Given ACHS [facility] Protocol - Patient Studies Lab Studies: Microbiology Studies 06/29/18 05:45 MRSA Culture (Admit) - Final Nose MRSA NOT DETECTED Lab Studies 06/30/18 06/30/18 06/30/18 Range/Units 11:12 07:24 05:20 WBC (4.8-10.8) K/uL RBC (3.80-5.20) Mil/uL Hgb (11.0-16.0) g/dL Hct (34.0-47.0) % MCV (81.0-99.0) fL MCH (27.0-31.0) pg MCHC (33.0-37.0) g/dL RDW (11.5-14.5) % Plt Count (130-400) K/uL MPV (7.2-11.7) fL Neut % (Auto) (50.0-75.0) % Lymph % (Auto) (20.0-40.0) % [place] % (Auto) (0.0-10.0) % Eos % (Auto) (0.0-4.0) % Baso % (Auto) (0.0-2.0) % Neut # (Auto) (1.8-7.0) K/uL Lymph # (Auto) (1.0-4.3) K/uL [place] # (Auto) (0.0-0.8) K/uL Eos # (Auto) (0.0-0.7) K/uL Baso # (Auto) (0.0-0.2) K/uL Differential Comment Sodium 136 (132-148) mmol/L Potassium 5.1 (3.6-5.2) mmol/L Chloride 97 L (98-107) mmol/L Carbon Dioxide 24 (22-30) mmol/L Anion Gap 19 (10-20) BUN 98 H (7-17) mg/dL Creatinine 8.6 H* D (0.7-1.2) mg/dL Est GFR ( Amer) 5 Est GFR (Non-Af Amer) 5 POC Glucose (mg/dL) 119 H 103 (65-110) mg/dL Random Glucose 92 (65-105) mg/dL Calcium 8.8 (8.6-10.4) mg/dl Phosphorus 5.2 H (2.5-4.5) mg/dL Magnesium 2.5 H (1.6-2.3) mg/dL Total Bilirubin 0.5 (0.2-1.3) mg/dL AST 22 (14-36) U/L ALT 17 (9-52) U/L Alkaline Phosphatase 108 (38-126) U/L Total Protein 5.6 L (6.3-8.3) g/dL Albumin 3.4 L (3.5-5.0) g/dL Globulin 2.2 (2.2-3.9) gm/dL Albumin/Globulin Ratio 1.5 (1.0-2.1) 06/30/18 06/29/18 06/29/18 Range/Units 05:20 21:24 17:47 WBC 3.5 L (4.8-10.8) K/uL RBC 2.91 L (3.80-5.20) Mil/uL Hgb 9.5 L (11.0-16.0) g/dL Hct 28.3 L (34.0-47.0) % MCV 97.0 (81.0-99.0) fL MCH 32.4 H (27.0-31.0) pg MCHC 33.4 (33.0-37.0) g/dL RDW 15.2 H (11.5-14.5) % Plt Count 118 L D (130-400) K/uL MPV 8.7 (7.2-11.7) fL Neut % (Auto) 76.7 H (50.0-75.0) % Lymph % (Auto) 13.3 L (20.0-40.0) % [place] % (Auto) 7.6 (0.0-10.0) % Eos % (Auto) 1.8 (0.0-4.0) % Baso % (Auto) 0.6 (0.0-2.0) % Neut # (Auto) 2.7 (1.8-7.0) K/uL Lymph # (Auto) 0.5 L (1.0-4.3) K/uL [place] # (Auto) 0.3 (0.0-0.8) K/uL Eos # (Auto) 0.1 (0.0-0.7) K/uL Baso # (Auto) 0.0 (0.0-0.2) K/uL Differential Comment Sodium (132-148) mmol/L Potassium (3.6-5.2) mmol/L Chloride (98-107) mmol/L Carbon Dioxide (22-30) mmol/L Anion Gap (10-20) BUN (7-17) mg/dL Creatinine (0.7-1.2) mg/dL Est GFR ( Amer) Est GFR (Non-Af Amer) POC Glucose (mg/dL) 142 H 113 H (65-110) mg/dL Random Glucose (65-105) mg/dL Calcium (8.6-10.4) mg/dl Phosphorus (2.5-4.5) mg/dL Magnesium (1.6-2.3) mg/dL Total Bilirubin (0.2-1.3) mg/dL AST (14-36) U/L ALT (9-52) U/L Alkaline Phosphatase (38-126) U/L Total Protein (6.3-8.3) g/dL Albumin (3.5-5.0) g/dL Globulin (2.2-3.9) gm/dL Albumin/Globulin Ratio (1.0-2.1) Laboratory Results - last 24 hr 06/29/18 06/29/18 06/30/18 17:47 21:24 05:20 WBC 3.5 L RBC 2.91 L Hgb 9.5 L Hct 28.3 L MCV 97.0 MCH 32.4 H MCHC 33.4 RDW 15.2 H Plt Count 118 L D MPV 8.7 Neut % (Auto) 76.7 H Lymph % (Auto) 13.3 L [place] % (Auto) 7.6 Eos % (Auto) 1.8 Baso % (Auto) 0.6 Neut # (Auto) 2.7 Lymph # (Auto) 0.5 L [place] # (Auto) 0.3 Eos # (Auto) 0.1 Baso # (Auto) 0.0 Differential Comment Sodium Potassium Chloride Carbon Dioxide Anion Gap BUN Creatinine Est GFR ( Amer) Est GFR (Non-Af Amer) POC Glucose (mg/dL) 113 H 142 H Random Glucose Calcium Phosphorus Magnesium Total Bilirubin AST ALT Alkaline Phosphatase Total Protein Albumin Globulin Albumin/Globulin Ratio 06/30/18 06/30/18 06/30/18 05:20 07:24 11:12 WBC RBC Hgb Hct MCV MCH MCHC RDW Plt Count MPV Neut % (Auto) Lymph % (Auto) [place] % (Auto) Eos % (Auto) Baso % (Auto) Neut # (Auto) Lymph # (Auto) [place] # (Auto) Eos # (Auto) Baso # (Auto) Differential Comment Sodium 136 Potassium 5.1 Chloride 97 L Carbon Dioxide 24 Anion Gap 19 BUN 98 H Creatinine 8.6 H* D Est GFR ( Amer) 5 Est GFR (Non-Af Amer) 5 POC Glucose (mg/dL) 103 119 H Random Glucose 92 Calcium 8.8 Phosphorus 5.2 H Magnesium 2.5 H Total Bilirubin 0.5 AST 22 ALT 17 Alkaline Phosphatase 108 Total Protein 5.6 L Albumin 3.4 L Globulin 2.2 Albumin/Globulin Ratio 1.5 Critical Care Progress Note - Nutrition Nutrition: Nutrition Category Date Time Status Renal Diet [DIET] Diets 06/29/18 Dinner Active Attending/Attestation - Attestation I have personally seen and examined this patient.: Yes I have fully participated in the care of the patient.: Yes I have reviewed all pertinent clinical information: Yes Notes (Text): 06/30/18 16:41 Patient seen and examined in the intensive care unit. Stable for transfer to floor
[2018-06-30] MEDS ORDERED: Epoetin Alfa Dialysis 2000 U/ML Inj IV SCH (12:00)
--- NOTE | 2018-06-30 14:12 | CP.PCM.PN ---
Subjective - Date & Time of Evaluation Date of Evaluation: 06/30/18 Time of Evaluation: 14:12 - Subjective Subjective: Patient seen and examined No events overnight Objective - Vital Signs/Intake and Output Vital Signs (last 24 hours): Temp Pulse Resp BP Pulse Ox 98 F 89 20 135/42 L 100 06/30/18 13:45 06/30/18 13:45 06/30/18 13:45 06/30/18 13:45 06/30/18 13:45 Intake and Output: 06/30/18 06/30/18 06:59 18:59 Intake Total 250 200 Output Total 0 Balance 250 200 - Medications Medications: Current Medications Acetaminophen (Tylenol 325mg Tab) 650 mg PO Q6 PRN PRN Reason: pain+fever Last Admin: 06/30/18 13:41 Dose: 650 mg Epoetin Wilfred (Procrit) 4,000 u IV MWF [facility] Last Admin: 06/30/18 12:46 Dose: 4,000 u Heparin Sodium (Porcine) (Heparin) 5,000 units SC Q8 [facility] Last Admin: 06/30/18 05:50 Dose: 5,000 units Insulin Human Regular (Novolin R) 0 unit SC ACHS [facility]; Protocol Last Admin: 06/30/18 11:30 Dose: Not Given - Labs Labs: 06/30/18 05:20 06/30/18 05:20 PT 12.5 SECONDS (9.7-12.2) H 06/28/18 22:55 INR 1.1 06/28/18 22:55 APTT 31 SECONDS (21-34) 06/28/18 22:55 - Head Exam Head Exam: NORMAL INSPECTION - Eye Exam Eye Exam: Normal appearance - ENT Exam ENT Exam: Mucous Membranes Moist - Respiratory Exam Respiratory Exam: Clear to Ausculation Bilateral - Cardiovascular Exam Cardiovascular Exam: REGULAR RHYTHM, +S1, +S2 - GI/Abdominal Exam GI & Abdominal Exam: Soft, Normal Bowel Sounds - Extremities Exam Extremities Exam: Normal Inspection Assessment and Plan (1) DM w/o complication type II Status: Acute (2) ESRD (end stage renal disease) Status: Acute (3) Hyperkalemia Status: Acute (4) Hypertension Status: Acute (5) Thrombosis of arteriovenous fistula Status: Acute - Assessment and Plan (Free Text) Plan: S/P hemodialysis BP control Accu-Chek Insulin sliding scale Follow electrolytes DVT/GI prophyale
[2018-07-01] MEDS: (Novolin R) Insulin Human Regular 100 units/ml vial SC SCH ×3 (07:30→16:30)
--- NOTE | 2018-07-01 08:35 | CP.PCM.PN ---
Subjective - Date & Time of Evaluation Date of Evaluation: 07/01/18 Time of Evaluation: 07:00 - Subjective Subjective: Vascular Surgery Pt seen and examined. NAEO. No new complaints. Wants [facility] out, wants to go home. HD was unable to only use fistula. Objective - Vital Signs/Intake and Output Vital Signs (last 24 hours): Temp Pulse Resp BP Pulse Ox 98 F 88 15 123/57 L 93 L 06/30/18 16:00 07/01/18 01:00 07/01/18 01:00 07/01/18 03:17 07/01/18 01:00 - Medications Medications: Current Medications Acetaminophen (Tylenol 325mg Tab) 650 mg PO Q6 PRN PRN Reason: pain+fever Last Admin: 06/30/18 13:41 Dose: 650 mg Epoetin Wilfred (Procrit) 4,000 u IV MWF [facility] Last Admin: 06/30/18 12:46 Dose: 4,000 u Heparin Sodium (Porcine) (Heparin) 5,000 units SC Q8 [facility] Last Admin: 07/01/18 06:42 Dose: 5,000 units Insulin Human Regular (Novolin R) 0 unit SC ACHS [facility]; Protocol Last Admin: 06/30/18 22:42 Dose: Not Given - Labs Labs: 06/30/18 05:20 06/30/18 05:20 PT 12.5 SECONDS (9.7-12.2) H 06/28/18 22:55 INR 1.1 06/28/18 22:55 APTT 31 SECONDS (21-34) 06/28/18 22:55 - Constitutional Appears: Non-toxic, No Acute Distress - Head Exam Head Exam: ATRAUMATIC, NORMOCEPHALIC - Eye Exam Eye Exam: EOMI. absent: Scleral icterus - Respiratory Exam Respiratory Exam: NORMAL BREATHING PATTERN. absent: Respiratory Distress - GI/Abdominal Exam GI & Abdominal Exam: Soft. absent: Distended, Tenderness - Extremities Exam Extremities Exam: Normal Capillary Refill Additional comments: palpable thrill in L AVF - Neurological Exam Neurological Exam: Alert, Awake, Oriented x3 - Skin Skin Exam: Dry, Warm Assessment and Plan - Assessment and Plan (Free Text) Assessment: 72F POD#1 s/p fistulogram with thrombolysis and balloon angioplasty Plan: Fistula still functioning poorly per Dialysis team Will discuss with Dr. Martinez about possibility of further intervention vs new AVF PGY4
--- NOTE | 2018-07-01 13:44 | CP.PCM.PN ---
Subjective - Date & Time of Evaluation Date of Evaluation: 07/01/18 Time of Evaluation: 13:44 Objective - Vital Signs/Intake and Output Vital Signs (last 24 hours): Temp Pulse Resp BP Pulse Ox 98.7 F 75 16 100/49 L 80 L 07/01/18 12:00 07/01/18 13:00 07/01/18 13:00 07/01/18 10:17 07/01/18 13:00 - Medications Medications: Current Medications Acetaminophen (Tylenol 325mg Tab) 650 mg PO Q6 PRN PRN Reason: pain+fever Last Admin: 06/30/18 13:41 Dose: 650 mg Epoetin Wilfred (Procrit) 4,000 u IV MWF [facility] Last Admin: 06/30/18 12:46 Dose: 4,000 u Heparin Sodium (Porcine) (Heparin) 5,000 units SC Q8 [facility] Last Admin: 07/01/18 06:42 Dose: 5,000 units Insulin Human Regular (Novolin R) 0 unit SC ACHS [facility]; Protocol Last Admin: 07/01/18 12:14 Dose: 1 units Sevelamer Carbonate (Renvela) 800 mg PO TIDCC [facility] Last Admin: 07/01/18 12:08 Dose: 800 mg Vitamin B Complex/Vit C/Folic Acid (Nephro-Delisa) 1 tab PO 0800 [facility] - Labs Labs: 06/30/18 05:20 06/30/18 05:20 PT 12.5 SECONDS (9.7-12.2) H 06/28/18 22:55 INR 1.1 06/28/18 22:55 APTT 31 SECONDS (21-34) 06/28/18 22:55
--- NOTE | 2018-07-01 14:41 | CP.PCM.PN ---
Subjective - Date & Time of Evaluation Date of Evaluation: 07/01/18 Time of Evaluation: 14:39 - Subjective Subjective: Nephrology Consultation Note: Assessment: Stable AVF dysfunction s/p fistulogram, thrombolysis 06/29/18 hyperkalemic with EKG changes, missed hemodialysis Hypertensive Chronic Kidney Disease (I12.0) End stage renal disease (N18.6) dependence on hemodialysis (Z99.2) (MWF) via AVF Anemia (D64.9), Hyperphosphatemia (E83.39), Secondary Hyperparathyroidism (E21.1), HTN (I12.0) Obesity, RCC, hx of nephrectomy Plan: yesterday able to use AVF 1 needle only. will re-attempt HD today with AVF only, if not successful then would be planned for permacath insertion tomorrow, D/w Dr Martinez. Will plan for HD per MWF schedule. Continue with Nephrovite 1 tab/day. PRBC as needed for anemia. On GRAEME as last Hb 9.5 Continue with phos binders home dose, last phos level: 5.2 BP on low side, hold BP meds Glycemic control, Dialysis consistent diet Further work up/management as per primary team Dose meds/antibiotics (if needed) for ESRD status. Avoid fleets enema/magnesium based laxatives. appreciate vascular surgery input d/c planning once access issues resolve. Thanks for allowing me to participate in care of your patient. will follow with you. Please call if any Qs. had d/w team Dr Say Salvador Office: [phone] Chief Complaint;access issues reason for consult: ESRD, hyperkalemia HPI: Pt is a 72 F with hx of ESRD on hemodialysis (MWF) via AVF (Dr Wing) @ [facility] [place], last dialysis Thursday, chronic anemia, hyperphosphatemia, secondary hyperparathyroidism, hypertension, obesity, RCC s/p nephrectomy presented with complaints of access dysfunction and unable to get dialysis. renal consult for ESRD management pt was hyperkalemic with EKg changes. admitted to ICU, required temp dialysis ac cess with emergent HD overnight. besides low back pain, she feels better ROS: Cardiovascular: No chest pain. Pulmonary: denies shortness of breath Gastrointestinal: denies abdominal pain no nausea. No vomiting. Genitourinary: No pain while urinating. Denies blood in urine. All other negative reports fall around adelina and skin bruising with it Physical Examination: General Appearance: in no acute respiratory distress, co-operative . comfortable obese Vitals reviewed and noted as below Head; Atraumatic, normocephalic ENT: no ulcers no thrush. Tongue is midline. Oropharynx: no rash or ulcers. EYES: Pupils are equal, round and reactive to light accommodation. Eye muscles and extraocular movement intact. Sclera is anicteric. Neck; supple no lymphadenopathy, no thyromegaly or bruit Lungs: Normal respiratory rate/effort. Breath sounds bilateral equal and clear Heart: Normal rate. s1s2 normal. No rub or gallop. Extremities: no edema. No varicose veins. hyperpigmented changes in lower extremities noted Neurological: Patient is alert, awake and oriented to person, place and time. No focal deficit. Strength bilateral appropriate and equal Skin: Warm and dry. Normal turgor. No rash but has echymoses. Palpitation: Normal elasticity for age Abdomen: Abdomen is soft. Bowel sounds +. There is no abdominal tenderness, no guarding/rigidity or organomegaly Psych: normal insight and normal affect/mood MSK: no joint tenderness or swelling. Digits and nails normal, no deformity : kidney or bladder not palpable Access: AVF lUE with thrill and bruit. Labs/imaging reviewed. Past medical history, past surgical history, family history, social history, allergy reviewed and noted as below Family Hx: no hx of CKD. Non contributory Objective - Vital Signs/Intake and Output Vital Signs (last 24 hours): Temp Pulse Resp BP Pulse Ox 97.6 F 63 17 109/53 L 100 07/01/18 14:15 07/01/18 14:15 07/01/18 14:15 07/01/18 14:30 07/01/18 14:15 - Medications Medications: Current Medications Acetaminophen (Tylenol 325mg Tab) 650 mg PO Q6 PRN PRN Reason: pain+fever Last Admin: 06/30/18 13:41 Dose: 650 mg Epoetin Wilfred (Procrit) 4,000 u IV MWF [facility] Last Admin: 06/30/18 12:46 Dose: 4,000 u Heparin Sodium (Porcine) (Heparin) 5,000 units SC Q8 [facility] Last Admin: 07/01/18 06:42 Dose: 5,000 units Insulin Human Regular (Novolin R) 0 unit SC ACHS [facility]; Protocol Last Admin: 07/01/18 12:14 Dose: 1 units Sevelamer Carbonate (Renvela) 800 mg PO TIDCC [facility] Last Admin: 07/01/18 12:08 Dose: 800 mg Vitamin B Complex/Vit C/Folic Acid (Nephro-Delisa) 1 tab PO 0800 [facility] - Labs Labs: 06/30/18 05:20 06/30/18 05:20 PT 12.5 SECONDS (9.7-12.2) H 06/28/18 22:55 INR 1.1 06/28/18 22:55 APTT 31 SECONDS (21-34) 06/28/18 22:55
--- NOTE | 2018-07-01 16:32 | CP.PCM.PN ---
Subjective - Date & Time of Evaluation Date of Evaluation: 07/01/18 Time of Evaluation: 16:32 - Subjective Subjective: PATIENT SEEN AND EXAMINED AT THE BEDSIDE Objective - Vital Signs/Intake and Output Vital Signs (last 24 hours): Temp Pulse Resp BP Pulse Ox 97.9 F 88 18 125/49 L 100 07/01/18 15:15 07/01/18 16:00 07/01/18 15:15 07/01/18 15:15 07/01/18 15:15 - Medications Medications: Current Medications Acetaminophen (Tylenol 325mg Tab) 650 mg PO Q6 PRN PRN Reason: pain+fever Last Admin: 06/30/18 13:41 Dose: 650 mg Epoetin Wilfred (Procrit) 4,000 u IV MWF [facility] Last Admin: 06/30/18 12:46 Dose: 4,000 u Heparin Sodium (Porcine) (Heparin) 5,000 units SC Q8 [facility] Last Admin: 07/01/18 14:00 Dose: Not Given Insulin Human Regular (Novolin R) 0 unit SC ACHS [facility]; Protocol Last Admin: 07/01/18 12:14 Dose: 1 units Sevelamer Carbonate (Renvela) 800 mg PO TIDCC [facility] Last Admin: 07/01/18 12:08 Dose: 800 mg Vitamin B Complex/Vit C/Folic Acid (Nephro-Delisa) 1 tab PO 0800 [facility] - Labs Labs: 06/30/18 05:20 06/30/18 05:20 PT 12.5 SECONDS (9.7-12.2) H 06/28/18 22:55 INR 1.1 06/28/18 22:55 APTT 31 SECONDS (21-34) 06/28/18 22:55 Assessment and Plan - Assessment and Plan (Free Text) Assessment: FOLLOW UP WITH DR MACHUCA IN HIS OFFICE ----CALL FOR APPOINTMENT FOLLOW UP WITH DR GOMEZ IN HIS OFFICE -----CALL FOR APPOINTMENT CONTINUE HOME MEDICATION ACTIVITY TOLERATED HEMODIALYSIS ORDERED CALL [facility] OR GO TO THE EMERGENCY ROOM IF SYMPTOM RETURN OR WORSENING
[2018-07-01 17:23] VITALS: BP 122/49; PULSE 80; RESP 20; TEMP 98.7; O2SAT 97
[2018-07-02] MEDS ORDERED: Multivitamin Vitamin B Complex (Nephro-Vite) Tab PO SCH (08:00)
--- NOTE | 2018-07-03 10:28 | CARD ---
APPROVED REPORT Date of service: 06/28/2018 EKG Measurement Heart [id number] <Conclusion> Undetermined rhythm Indeterminate axis Pulmonary disease pattern ST & T wave abnormality, consider inferior ischemia ST & T wave abnormality, consider anterior ischemia Abnormal ECG
--- NOTE | 2018-07-07 18:21 | CP.PCM.DIS ---
Provider - Provider Date of Admission: 06/28/18 23:36 Attending physician: Reyes Roberts MD Consults: 06/28/18 20:54 General Surgery Consult Routine Comment: Consulting Provider: Anurag Martinez Jr. Consulting Physician: Anurag Martinez Jr. Reason for Consult: AVF malfunctioning Time Spent in preparation of Discharge (in minutes): 25 Hospital Course - Lab Results Lab Results: Micro Results 07/01/18 21:05 Naris MRSA Culture - Final MRSA NOT DETECTED 06/29/18 05:45 Nose MRSA Culture (Admit) - Final MRSA NOT DETECTED Most Recent Lab Values WBC 3.5 K/uL (4.8-10.8) L 06/30/18 05:20 RBC 2.91 Mil/uL (3.80-5.20) L 06/30/18 05:20 Hgb 9.5 g/dL (11.0-16.0) L 06/30/18 05:20 Hct 28.3 % (34.0-47.0) L 06/30/18 05:20 MCV 97.0 fL (81.0-99.0) 06/30/18 05:20 MCH 32.4 pg (27.0-31.0) H 06/30/18 05:20 MCHC 33.4 g/dL (33.0-37.0) 06/30/18 05:20 RDW 15.2 % (11.5-14.5) H 06/30/18 05:20 Plt Count 118 K/uL (130-400) L D 06/30/18 05:20 MPV 8.7 fL (7.2-11.7) 06/30/18 05:20 Neut % (Auto) 76.7 % (50.0-75.0) H 06/30/18 05:20 Lymph % (Auto) 13.3 % (20.0-40.0) L 06/30/18 05:20 Hyde % (Auto) 7.6 % (0.0-10.0) 06/30/18 05:20 Eos % (Auto) 1.8 % (0.0-4.0) 06/30/18 05:20 Baso % (Auto) 0.6 % (0.0-2.0) 06/30/18 05:20 Neut # (Auto) 2.7 K/uL (1.8-7.0) 06/30/18 05:20 Lymph # (Auto) 0.5 K/uL (1.0-4.3) L 06/30/18 05:20 Hyde # (Auto) 0.3 K/uL (0.0-0.8) 06/30/18 05:20 Eos # (Auto) 0.1 K/uL (0.0-0.7) 06/30/18 05:20 Baso # (Auto) 0.0 K/uL (0.0-0.2) 06/30/18 05:20 Neutrophils % (Manual) 86 % (50-75) H 06/28/18 21:24 Lymphocytes % (Manual) 9 % (20-40) L 06/28/18 21:24 Monocytes % (Manual) 5 % (0-10) 06/28/18 21:24 Differential Comment 06/30/18 05:20 Platelet Estimate Normal (NORMAL) 06/28/18 21:24 PT 12.5 SECONDS (9.7-12.2) H 06/28/18 22:55 INR 1.1 06/28/18 22:55 APTT 31 SECONDS (21-34) 06/28/18 22:55 Sodium 136 mmol/L (132-148) 06/30/18 05:20 Potassium 5.1 mmol/L (3.6-5.2) 06/30/18 05:20 Chloride 97 mmol/L (98-107) L 06/30/18 05:20 Carbon Dioxide 24 mmol/L (22-30) 06/30/18 05:20 Anion Gap 19 (10-20) 06/30/18 05:20 BUN 98 mg/dL (7-17) H 06/30/18 05:20 Creatinine 8.6 mg/dL (0.7-1.2) H* D 06/30/18 05:20 Est GFR ( Amer) 5 06/30/18 05:20 Est GFR (Non-Af Amer) 5 06/30/18 05:20 POC Glucose (mg/dL) 109 mg/dL (65-110) 07/01/18 16:53 Random Glucose 92 mg/dL (65-105) 06/30/18 05:20 Calcium 8.8 mg/dl (8.6-10.4) 06/30/18 05:20 Phosphorus 5.2 mg/dL (2.5-4.5) H 06/30/18 05:20 Magnesium 2.5 mg/dL (1.6-2.3) H 06/30/18 05:20 Total Bilirubin 0.5 mg/dL (0.2-1.3) 06/30/18 05:20 AST 22 U/L (14-36) 06/30/18 05:20 ALT 17 U/L (9-52) 06/30/18 05:20 Alkaline Phosphatase 108 U/L (38-126) 06/30/18 05:20 Troponin I 0.0260 ng/mL (0.00-0.120) 06/28/18 22:55 Total Protein 5.6 g/dL (6.3-8.3) L 06/30/18 05:20 Albumin 3.4 g/dL (3.5-5.0) L 06/30/18 05:20 Globulin 2.2 gm/dL (2.2-3.9) 06/30/18 05:20 Albumin/Globulin Ratio 1.5 (1.0-2.1) 06/30/18 05:20 - Hospital Course Hospital Course: 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 Patient's condition improved and is being discharged home to be followed up as outpatient Discharge Exam - Head Exam Head Exam: ATRAUMATIC, NORMOCEPHALIC - Eye Exam Eye Exam: Normal appearance - ENT Exam ENT Exam: Mucous Membranes Moist - Respiratory Exam Respiratory Exam: Clear to PA & Lateral - Cardiovascular Exam Cardiovascular Exam: REGULAR RHYTHM - GI/Abdominal Exam GI & Abdominal Exam: Normal Bowel Sounds, Soft - Extremities Exam Extremities exam: normal inspection Discharge Plan - Follow Up Plan Condition: GOOD Disposition: HOME/ ROUTINE Instructions: Heart Failure, Adult (DC), Chronic Kidney Disease (DC), End Stage Kidney Disease (DC) Additional Instructions: FOLLOW UP WITH DR ROBERTS IN HIS OFFICE ----CALL FOR APPOINTMENT FOLLOW UP WITH DR GOMEZ IN HIS OFFICE -----CALL FOR APPOINTMENT CONTINUE HOME MEDICATION ACTIVITY TOLERATED HEMODIALYSIS ORDERED CALL [facility] OR GO TO THE EMERGENCY ROOM IF SYMPTOM RETURN OR WORSENING Referrals: Reyes Roberts MD [Staff Provider] - Say Gomez MD [Staff Provider] - Anurag Martinez Jr., MD [Staff Provider] -
== END 2018-07-01 18:40 | disposition home or self-care (01) | DRG 252 ==
LOC: C.ER 18:37 → C.9I 23:36
PROVIDERS: ADMIT Internal Medicine Critical Care Medicine; ATTEND Internal Medicine Critical Care Medicine
PROC: 05783ZZ Dilation of Left Axillary Vein, Percutaneous Approach (ICD-10-PCS; 2018-06-29)
PROC: 3E05317 Introduction of Other Thrombolytic into Peripheral Artery, Percutaneous Approach (ICD-10-PCS; 2018-06-29)
PROC: B51W1ZZ Fluoroscopy of Dialysis Shunt/Fistula using Low Osmolar Contrast (ICD-10-PCS; 2018-06-29)
PROC: 02HV33Z Insertion of Infusion Device into Superior Vena Cava, Percutaneous Approach (ICD-10-PCS; 2018-06-29)
PROC: 5A1D70Z Performance of Urinary Filtration, Intermittent, Less than 6 Hours Per Day (ICD-10-PCS; 2018-06-29)
PROC: 03763ZZ Dilation of Left Axillary Artery, Percutaneous Approach (ICD-10-PCS; principal; 2018-06-29 13:30)
DX: T82.868A Thrombosis due to vascular prosthetic devices, implants and grafts, initial encounter (principal); N18.6 End stage renal disease; I13.2 Hypertensive heart and chronic kidney disease with heart failure and with stage 5 chronic kidney disease, or end stage renal disease; N25.81 Secondary hyperparathyroidism of renal origin; C66.9 Malignant neoplasm of unspecified ureter; E66.9 Obesity, unspecified; E83.39 Other disorders of phosphorus metabolism; D63.8 Anemia in other chronic diseases classified elsewhere; E11.22 Type 2 diabetes mellitus with diabetic chronic kidney disease; E78.00 Pure hypercholesterolemia, unspecified; E87.5 Hyperkalemia; G20 Parkinson's disease; I25.10 Atherosclerotic heart disease of native coronary artery without angina pectoris; I35.0 Nonrheumatic aortic (valve) stenosis; Y84.1 Kidney dialysis as the cause of abnormal reaction of the patient, or of later complication, without mention of misadventure at the time of the procedure; I48.91 Unspecified atrial fibrillation; I50.9 Heart failure, unspecified; M53.3 Sacrococcygeal disorders, not elsewhere classified; Z91.81 History of falling; Z95.5 Presence of coronary angioplasty implant and graft; Z99.2 Dependence on renal dialysis; M19.90 Unspecified osteoarthritis, unspecified site; R00.1 Bradycardia, unspecified; Z85.528 Personal history of other malignant neoplasm of kidney